=== PATIENT | male | born 1965 | race Caucasian/White ===

== ENCOUNTER 2020-08-13 09:53 | Emergency (ER) | payer OTHER, SELFPAY ==
--- NOTE | ~2020-08-13 | XR_ITS ---
EXAMINATION: XR chest 2V DATE: 08/13/2020 11:52 INDICATION: Left shoulder pain. TECHNIQUE: Frontal and lateral views of the chest were obtained on 3 radiographs. COMPARISON: None. FINDINGS: The chest demonstrates clear lungs without pneumonia, pleural effusion, or pneumothorax. Th e heart size is normal. IMPRESSION: 1. No acute cardiopulmonary disease. Reviewed, dictated and finalized at location A.
--- NOTE | ~2020-08-13 | XR_ITS ---
EXAMINATION: XR shoulder LT min 2V DATE: 08/13/2020 11:52 INDICATION: Left shoulder pain. TECHNIQUE: 5 views of left shoulder were obtained. COMPARISON: None. FINDINGS: Bone alignment is normal. No fracture. There is mild osteoarthritis of glenohumeral joint a nd moderate osteoarthritis of acromioclavicular joint. IMPRESSION: 1. Polyarticular osteoarthritis. Reviewed, dictated and finalized at location A.
--- NOTE | ~2020-08-13 | CT_ITS ---
EXAMINATION: CT abdomen pelvis wo con DATE: 08/13/2020 11:00 INDICATION: Left flank pain. TECHNIQUE: Computed tomography (CT) of the abdomen and pelvis was performed without intravenous contr ast. Automated exposure control and iterative reconstruction technique were employed. The dose-length product was 675.22 mGy-cm. COMPARISON: CT abdomen and pelvis 12/17/2016 FINDINGS: The visualized portions of the lung bases demonstrate mild atelectasis. No pleural effusion . Partially visualized is a 3.7 x 1.6 cm cyst to the right of right atrium and ascending aorta, consi stent with a pericardial cyst. The heart size is normal. No pericardial effusion. There is a 6 mm cys t in the liver. There is a gallstone in the gallbladder, which is normal in size. The spleen, pancrea s, adrenal glands, and right kidney are normal. There is a 4 mm nonobstructing stone in left kidney. There are no dilated loops of bowel. The appendix is not visualized. There are no pathologically enla rged lymph nodes. There is no free intraperitoneal fluid. There are small stones in the dependent yoko dder measuring up to at least 4 mm. There is a right inguinal hernia containing fat. There is mild th oracolumbar spondylosis. There is a hemangioma in T11 vertebral body. IMPRESSION: 1. Small stones in the bladder and left kidney. Reviewed, dictated and finalized at location A.
[2020-08-13 09:54] VITALS: BP 150/102; PULSE 80; RESP 18; TEMP 36.4; O2SAT 99
--- NOTE | 2020-08-13 10:29 | ED.BACK ---
HPI - Back Pain/Injury General Chief Complaint: Back Pain/Injury Stated Complaint: L flank pain Time Seen by Provider: 08/13/20 09:57 Source: patient Mode of arrival: ambulatory Limitations: no limitations History of Present Illness HPI Narrative: Patient is a 54-year-old male who presents complaining of left flank pain x3 to 4 days, increasing pain this a.m. Patient reports a history of kidney stones x5, last incidence approximately 1.5 years ago. He denies dysuria, frequency, urgency or visible hematuria. He denies nausea and vomiting, but reports initial nausea and vomiting which has resolved. He denies pain with movement, or any any known injury. Patient also complaining of left shoulder pain. He denies known injury, he denies chest pain or shortness of breath. Reports pain increases with range of motion. He denies taking [id number] medications for pain at this time. MD elicited complaint: other (Left flank pain) Pertinent past history: kidney stones Related Data Allergies Allergy/AdvReac Type Severity Reaction Status Date / Time No Known Allergies Allergy Verified 08/13/20 09:54 Review of Systems Review of Systems: Narrative: CONSTITUTIONAL: Denies fever, chills, or sweats. EYES: Denies visual changes, redness, or discharge. ENT: Denies rhinorrhea, congestion, sore throat, or otalgia. CARDIOVASCULAR: Denies chest pain, palpitations, or edema. RESPIRATORY: Denies cough or dyspnea. GASTROINTESTINAL: Denies abdominal pain, nausea, vomiting, or diarrhea. GENITOURINARY: Denies dysuria or hematuria. Reports left flank pain SKIN: Denies rash or itching. MUSCULOSKELETAL: Denies back pain, reports left shoulder pain NEUROLOGIC: Denies headache, numbness, dizziness, or weakness. PSYCHIATRIC: Denies anxiety or depression. [facility] Past Medical History Medical History (Updated 08/13/20 @ 13:59 by GRECIA Payne) Multiple kidney stones Surgical History Surgical History (Updated 08/13/20 @ 10:34 by GRECIA Payne) No significant past surgical history Family History Family History (Updated 08/13/20 @ 10:35 by GRECIA Payne) Other Hypertension Social History Social History (Updated 08/13/20 @ 10:35 by Klaudia M. Keen, AQUATIC ECOLOGIST) Smoking status: Current some day smoker Tobacco type: cigarettes Alcohol intake: current Alcohol use details: occasionally Substance use: never Living arrangements: with family Occupation/Education: occupation Gender identity (if verbalized by the patient): Male Exam Narrative: Exam Narrative: GENERAL: Well-appearing, well-nourished, and in no acute distress. HEAD: Normocephalic, atraumatic. EYES: EOMI. No redness or drainage. Conjunctiva are normal. ENT: Mucous membranes pink and moist. NECK: AROM. Supple. No lymphadenopathy. CHEST: No respiratory distress. Clear to auscultation. HEART: Regular rate and rhythm. No murmur appreciated. Normal peripheral pulses. GI: Soft, nontender without rebound, or guarding. No distention. Bowel sounds normal in all quadrants. MUSCULOSKELETAL: No bony tenderness. EXTREMITIES: Normal range of motion. No edema. SKIN: Warm, dry, no rash. NEURO: No focal deficits. Alert and oriented x3. Gait steady. PSYCH: Normal affect. No signs of depression or anxiety. Course Vital Signs Vital signs: Vital Signs Temperature 36.4 C L 08/13/20 09:54 Pulse Rate 80 08/13/20 09:54 Respiratory Rate 18 08/13/20 09:54 Blood Pressure 150/102 H 08/13/20 09:54 Pulse Oximetry 99 08/13/20 09:54 Temperature 36.4 C L 08/13/20 09:54 Pulse Rate 78 08/13/20 12:31 Respiratory Rate 18 08/13/20 12:31 Blood Pressure 160/90 H 08/13/20 12:31 Pulse Oximetry 99 08/13/20 12:31 Reviewed. Patient has been instructed to follow-up with his PCP regarding his blood pressure. MDM - Back Pain/Injury MDM Narrative Medical decision making narrative: Patients CT shows multiple kidney stones in bladder
[2020-08-13 10:32] LABS: Basophils Absolute Auto 0.1 K/mm3 (0.0-0.1); Basophils Percent Auto 0.6 % (0.2-1.2); Eosinophils Absolute Auto 0.3 K/mm3 (0-0.3); Eosinophils Percent Auto 3.7 % (0-4.4); Hematocrit 45.9 % (42.0-52.0); Hemoglobin 16.3 g/dL (14.0-18.0); Immature Granulocyte Absolute 0.02 K/mm3 (0.00-0.031); Immature Granulocyte Percent A 0.2 % (0-0.5); Lymphocytes Absolute Auto 2.34 K/mm3 (0.9-3.2); Lymphocytes Percent Auto 27.7 % (18.3-44.2); Mean Corpuscular HGB Conc 35.5 g/dl (32-36); Mean Corpuscular Hemoglobin 31.8 pg (26-34); Mean Corpuscular Volume 89.5 fl (80-100); Mean Platelet Volume 9.8 fl (7.4-10.4); Monocytes Absolute Auto 0.6 K/mm3 (0.1-0.6); Neutrophils Absolute Auto 5.1 K/mm3 (1.3-6.7); Neutrophils Percent Auto 60.8 % (45.5-73.1); Platelet Count Result 252 k/mm3 (150-375); Red Blood Count 5.13 M/mm3 (4.6-6.20); Red Cell Distribution Width 11.9 % (11.5-14.5); White Blood Count 8.4 K/mm3 (4.5-10.0)
--- NOTE | 2020-08-13 10:36 | ECG_ITS ---
Measurements Intervals [place] Rate: 71 P: 34 MO: 151 QRS: -25 QRSD: 102 T: 22 QT: 412 QTc: 449 Interpretive Statements SINUS RHYTHM BASELINE ARTIFACT- III, AVF, V1 BORDERLINE ECG Electronically Signed On 08-13-2020 11:06:41 CDT by Juan M Whitfield D.O.
[2020-08-13] MEDS: KETOROLAC 30 MG/ML VIAL (*BKC) IV PUSH (10:41)
[2020-08-13] MEDS: SODIUM CHLORIDE 0.9% IV 1,000 ML 999 ML IV CONT ×2 (10:41→12:33)
[2020-08-13 10:43] LABS: Anion Gap 12 mmol/L (8-16); Blood Urea Nitrogen 14 mg/dL (9-20); Calcium 9.4 mg/dL (8.4-10.2); Carbon Dioxide 21 mmol/L (22-30); Chloride 104 mmol/L (98-107); Estimated CRCL calculation 109 ml/min; Estimated Glomerular Filt Rate > 60; Glucose 93 mg/dL (75-110); Potassium 3.8 mmol/L (3.4-5.0); Sodium 137 mmol/L (137-145)
[2020-08-13 10:45] VITALS: BP 172/127; PULSE 69; RESP 15; O2SAT 98
[2020-08-13 10:51] LABS: Add Urine Microscopic? NO; Appearance Urine Clear (Clear); Bilirubin Urine Negative (Negative); Blood Urine Negative (Negative); Color Urine Yellow (Yellow); Glucose Urine UA Negative (Negative); Ketones Urine Negative (Negative); Leukocyte Esterase Ur Negative LEU/UL (Negative); Mucus Urine Few /lpf; Nitrate Urine Negative (Negative); Protein Urine Negative (Negative); Specific Grav Ur 1.021 (1.001-1.035); Squamous Epithelial Cell Urine Rare /hpf (Few); Urobilinogen Urine Negative mg/dL (<2.0)
[2020-08-13 11:16] LABS: Troponin I < 0.012 ng/mL (0.000-0.034)
[2020-08-13 11:23] VITALS: BP 178/123; PULSE 78; RESP 20; O2SAT 99
[2020-08-13] MEDS: MORPHINE SULFATE (*CRX) 4 MG/ML INJ IV PUSH (11:23)
[2020-08-13] MEDS: ONDANSETRON INJ 4 MG/2 ML VIAL IV PUSH (11:23)
[2020-08-13 12:31] VITALS: BP 160/90; PULSE 78; RESP 18; O2SAT 99
[2020-08-13 14:09] LABS: Troponin I < 0.012 ng/mL (0.000-0.034)
[2020-08-13 14:30] VITALS: BP 167/113; PULSE 63; RESP 15; O2SAT 98
== END 2020-08-13 14:36 | disposition home or self-care (01) ==
PROVIDERS: Emergency Provider Nurse Practitioner
DX: N20.0 Calculus of kidney (principal); M19.012 Primary osteoarthritis, left shoulder; Z87.442 Personal history of urinary calculi; F17.210 Nicotine dependence, cigarettes, uncomplicated; R94.31 Abnormal electrocardiogram [ECG] [EKG]
CPT/HCPCS: 36415; 71046; 73030; 74176; 80048; 81003; 84484; 85025; 93005; 96361; 96365; 96375; 99284; J0131; J1885; J2270; J2405; J7030

== ENCOUNTER 2022-08-04 09:10 | Emergency (ER) | payer OTHER, SELFPAY ==
--- NOTE | ~2022-08-04 | CT_ITS ---
EXAMINATION: CT abdomen pelvis wo con DATE: 08/04/2022 09:48 INDICATION: Right flank pain for one week. History of kidney stones. TECHNIQUE: Computed tomography (CT) of the abdomen and pelvis was performed without intravenous contr ast. The dose-length product was 1131.85 mGy-cm. Automated exposure control and iterative reconstruct ion technique were employed. COMPARISON: CT dated 08/13/2020 FINDINGS: Lung bases are unremarkable. No significant pleural or pericardial effusion. Heart size is normal. No significant vascular abnormality. There is a circumaortic left renal vein. There are galls tones. Small subcentimeter hypodensity of the right hepatic lobe, most likely benign. The spleen, mckinney creas, adrenal glands are unremarkable. There are small nonobstructing bilateral renal stones measuri ng 2 mm or less. No ureteral stones or hydronephrosis. There are is a bladder stone. No lymphadenopat hy. Nonobstructive bowel gas pattern. Prostate gland is mildly prominent. Mild osteoarthritis of the hips. There is an hemangioma in T11 vertebral body. Mild spondylosis of the thoracolumbar junction. IMPRESSION: 1. Small nonobstructing bilateral renal stones. 2: Bladder stone. 3: Cholelithiasis. Reviewed, dictated and finalized at location A.
[2022-08-04 09:14] VITALS: BP 155/91; PULSE 97; RESP 18; TEMP 36.5; O2SAT 99
[2022-08-04] MEDS: SODIUM CHLORIDE 0.9% IV 1,000 ML 999 ML IV CONT (09:35)
--- NOTE | 2022-08-04 09:35 | ED.GENADULT ---
HPI - General Adult General Chief complaint: Back Pain/Injury Stated complaint: right flank pain Time Seen by Provider: 08/04/22 09:18 History of Present Illness HPI narrative: 56-year-old male history of kidney stones presents the emergency room with gradual onset of right flank pain that has been present for 1 week. Patient denies any radiating pain. Denies fevers. Denies any urinary retention or decreased urinary flow. Reports regular bowel movements. States the pain is worse when he is standing up, and occasionally has difficulty finding a comfortable position Related Data Allergies Allergy/AdvReac Type Severity Reaction Status Date / Time No Known Allergies Allergy Verified 08/04/22 09:18 Review of Systems Review of Systems: CONSTITUTIONAL: Denies fever, chills, or sweats. EYES: Denies visual changes, redness, or discharge. ENT: Denies rhinorrhea, congestion, sore throat, or otalgia. CARDIOVASCULAR: Denies chest pain, palpitations, or edema. RESPIRATORY: Denies cough or dyspnea. GASTROINTESTINAL: Reports right flank pain, nausea GENITOURINARY: Denies dysuria or hematuria. SKIN: Denies rash or itching. MUSCULOSKELETAL: Denies back pain, joint pain, or myalgia. NEUROLOGIC: Denies headache, numbness, dizziness, or weakness. PSYCHIATRIC: Denies anxiety or depression. PMFSH Past Medical History Medical History Arthritis Hypertension Multiple kidney stones Seasonal allergies Tendinitis of left rotator cuff Trigger point of left shoulder region Surgical History Surgical History No significant past surgical history Family History Family History Other Arthritis Diabetes mellitus Heart disease Hypertension Malignant neoplasm Social History Social History Smoking packs per day: 0.5 Smoking cigarettes per day: 10.0 Years smoked: 20 Smoking pack-years: 10.00 Smoking status: Current some day smoker Tobacco type: cigarettes Alcohol intake: current Alcohol use details: occasionally Substance use: never Gender identity (if verbalized by the patient): Male Exam Narrative: GENERAL: Uncomfortable-appearing, well-nourished, no physical limitations HEAD: Normocephalic, atraumatic. EYES: Conjunctivae normal, PERRLA and EOMI. CHEST: Clear to auscultation. No respiratory distress. No wheezes rales or rhonchi. HEART: Regular rate and rhythm. No murmur heard. Normal peripheral pulses. ABDOMEN: Soft, nontender, nondistended, normal active bowel sounds. BACK: Right CVA tenderness; No midline cervical/thoracic/lumbar tenderness EXTREMITIES: Normal range of motion. No edema. No clubbing or cyanosis SKIN: Warm, dry, no rash. No noted wounds NEURO: No focal deficits. Alert and oriented x3. MAEW. CN's II-XI intact bilaterally, normal gait PSYCH: Cooperative. Normal mood and affect. Course Vital Signs Vital signs: Vital Signs Temperature 36.5 C 08/04/22 09:14 Pulse Rate 97 08/04/22 09:14 Respiratory Rate 18 08/04/22 09:14 Blood Pressure 155/91 H 08/04/22 09:14 Pulse Oximetry 99 08/04/22 09:14 Oxygen Delivery Room Air 08/04/22 09:14 Temperature 36.5 C 08/04/22 09:14 Pulse Rate 97 08/04/22 09:14 Respiratory Rate 18 08/04/22 09:14 Blood Pressure 155/91 H 08/04/22 09:14 Pulse Oximetry 99 08/04/22 09:14 Oxygen Delivery Room Air 08/04/22 09:14 Medical Decision Making Vital Signs Vital Signs: Vital Signs Temperature 36.5 C 08/04/22 09:14 Pulse Rate 97 08/04/22 09:14 Respiratory Rate 18 08/04/22 09:14 Blood Pressure 155/91 H 08/04/22 09:14 Pulse Oximetry 99 08/04/22 09:14 Oxygen Delivery Room Air 08/04/22 09:14 Temperature 36.5 C 08/04/22 09:14 Pulse Rate 97 08/04/22 09:14 Respiratory Rate 18
[2022-08-04] MEDS: ONDANSETRON INJ 4 MG/2 ML VIAL IV PUSH (09:36)
[2022-08-04] MEDS: MORPHINE SULFATE (*CRX) 4 MG/ML INJ IV PUSH (09:36)
[2022-08-04 09:37] LABS: Basophils Percent Auto 0.6 % (0.2-1.2); Eosinophils Absolute Auto 0.3 K/mm3 (0-0.3); Eosinophils Percent Auto 6.3 % (0-4.4); Hematocrit 46.9 % (42.0-52.0); Hemoglobin 16.4 g/dL (14.0-18.0); Immature Granulocyte Absolute 0.01 K/mm3 (0.00-0.031); Immature Granulocyte Percent A 0.2 % (0-0.5); Lymphocytes Absolute Auto 1.57 K/mm3 (0.9-3.2); Lymphocytes Percent Auto 30.9 % (18.3-44.2); Mean Corpuscular Volume 91.6 fl (80-100); Mean Platelet Volume 9.3 fl (7.4-10.4); Monocytes Absolute Auto 0.4 K/mm3 (0.1-0.6); Monocytes Percent Auto 7.1 % (2.6-8.5); Neutrophils Absolute Auto 2.8 K/mm3 (1.3-6.7); Neutrophils Percent Auto 54.9 % (45.5-73.1); Platelet Count Result 224 k/mm3 (150-375); Red Blood Count 5.12 M/mm3 (4.6-6.20); Red Cell Distribution Width 12.3 % (11.5-14.5); White Blood Count 5.1 K/mm3 (4.5-10.0)
[2022-08-04 09:54] LABS: Alanine Aminotransferase 43 U/L (6-50); Albumin Level 4.5 g/dL (3.5-5.1); Alkaline Phosphatase 88 U/L (38-126); Anion Gap 10 mmol/L (8-16); Aspartate Amino Transferase 32 U/L (17-59); Bilirubin,Total 0.7 mg/dL (0.2-1.3); Blood Urea Nitrogen 12 mg/dL (9-20); Carbon Dioxide 23 mmol/L (22-30); Chloride 108 mmol/L (98-107); Estimated CRCL calculation 96 ml/min; Estimated Glomerular Filt Rate > 60; Glucose 124 mg/dL (65-110); Lipase 78 U/L (23-300); Potassium 3.9 mmol/L (3.4-5.0); Sodium 141 mmol/L (137-145)
[2022-08-04 10:33] LABS: Appearance Urine Clear (Clear); Bilirubin Urine Negative (Negative); Blood Urine Negative (Negative); Color Urine Yellow (Yellow); Glucose Urine UA Negative (Negative); Ketones Urine Negative (Negative); Leukocyte Esterase Ur Negative LEU/UL (Negative); Nitrate Urine Negative (Negative); Protein Urine Negative (Negative); Specific Grav Ur 1.025 (1.001-1.035); Urobilinogen Urine 0.2 mg/dL (<2.0); pH Urine 6.5 (5.0-9.0)
[2022-08-04 10:42] LABS: Add Urine Microscopic? NO
[2022-08-04 11:09] VITALS: BP 145/92; PULSE 73; RESP 18; O2SAT 97
== END 2022-08-04 11:11 | disposition home or self-care (01) ==
PROVIDERS: Emergency Provider Nurse Practitioner Family; PCP Family Medicine
DX: S29.012A Strain of muscle and tendon of back wall of thorax, initial encounter (principal); I10 Essential (primary) hypertension; M19.90 Unspecified osteoarthritis, unspecified site; F17.210 Nicotine dependence, cigarettes, uncomplicated; Z87.442 Personal history of urinary calculi; N21.0 Calculus in bladder; K80.20 Calculus of gallbladder without cholecystitis without obstruction; X58.XXXA Exposure to other specified factors, initial encounter
CPT/HCPCS: 36415; 74176; 80053; 81003; 83690; 85025; 96361; 96374; 96375; 99284; J2270; J2405; J7030

== ENCOUNTER 2022-08-18 04:29 | Emergency (ER) | payer OTHER, SELFPAY ==
[2022-08-18 04:36] VITALS: BP 140/92; PULSE 81; RESP 18; TEMP 36.4; O2SAT 100
[2022-08-18 05:00] LABS: Basophils Percent Auto 0.8 % (0.2-1.2); Eosinophils Absolute Auto 0.3 K/mm3 (0-0.3); Eosinophils Percent Auto 5.4 % (0-4.4); Hematocrit 47.2 % (42.0-52.0); Hemoglobin 16.4 g/dL (14.0-18.0); Immature Granulocyte Absolute 0.02 K/mm3 (0.00-0.031); Immature Granulocyte Percent A 0.4 % (0-0.5); Lymphocytes Percent Auto 24.9 % (18.3-44.2); Mean Corpuscular HGB Conc 34.7 g/dl (32-36); Mean Corpuscular Hemoglobin 32.1 pg (26-34); Mean Corpuscular Volume 92.4 fl (80-100); Mean Platelet Volume 9.6 fl (7.4-10.4); Monocytes Absolute Auto 0.4 K/mm3 (0.1-0.6); Monocytes Percent Auto 7.3 % (2.6-8.5); Neutrophils Absolute Auto 3.2 K/mm3 (1.3-6.7); Neutrophils Percent Auto 61.2 % (45.5-73.1); Platelet Count Result 223 k/mm3 (150-375); Red Blood Count 5.11 M/mm3 (4.6-6.20); Red Cell Distribution Width 11.9 % (11.5-14.5); White Blood Count 5.2 K/mm3 (4.5-10.0)
[2022-08-18 05:16] LABS: Alanine Aminotransferase 36 U/L (6-50); Albumin Level 4.5 g/dL (3.5-5.1); Alkaline Phosphatase 90 U/L (38-126); Anion Gap 8 mmol/L (8-16); Aspartate Amino Transferase 30 U/L (17-59); Bilirubin,Total 0.6 mg/dL (0.2-1.3); Blood Urea Nitrogen 11 mg/dL (9-20); Carbon Dioxide 25 mmol/L (22-30); Chloride 106 mmol/L (98-107); Estimated CRCL calculation 104 ml/min; Estimated Glomerular Filt Rate > 60; Glucose 118 mg/dL (65-110); Potassium 4.2 mmol/L (3.4-5.0); Sodium 139 mmol/L (137-145)
[2022-08-18] MEDS: predniSONE 40 MG, predniSONE 10 MG 50 MG PO (06:21)
[2022-08-18] MEDS: IBUPROFEN 400 MG TABLET 800 MG PO (06:22)
[2022-08-18] MEDS: HYDROcodone/acetaminophen (*CRX) 5-325 MG TABLET 1 TAB PO (06:22)
--- NOTE | 2022-08-18 06:32 | ED.GENADULT ---
HPI - General Adult General Chief complaint: Urogenital-Male Stated complaint: lower back pain, kidney stones x2 wks Time Seen by Provider: 08/18/22 05:44 History of Present Illness HPI narrative: Patient is a 56-year-old male presenting with lower back pain. Patient states that he has been having lower back pain for the last several weeks. States that for the last couple of days it has been shooting down his right leg. States that certain movements and positions make it worse. Denies recent trauma. No fevers or chills. Denies numbness, weakness, saddle anesthesia, bladder or bowel incontinence. Patient states that he has an appointment with urology later today for kidney stones. States this feels differently than his kidney stone pain because the pain goes down his leg. He denies chest pain, shortness of breath, cough, abdominal pain, nausea or vomiting, diarrhea, dysuria. Related Data Allergies Allergy/AdvReac Type Severity Reaction Status Date / Time No Known Allergies Allergy Verified 08/18/22 04:32 Review of Systems Review of Systems: All systems reviewed & are unremarkable except as noted in HPI and below PMFSH Past Medical History Medical History Arthritis Hypertension Multiple kidney stones Seasonal allergies Tendinitis of left rotator cuff Trigger point of left shoulder region Surgical History Surgical History No significant past surgical history Family History Family History Other Arthritis Diabetes mellitus Heart disease Hypertension Malignant neoplasm Social History Social History Smoking packs per day: 0.5 Smoking cigarettes per day: 10.0 Years smoked: 20 Smoking pack-years: 10.00 Smoking status: Current some day smoker Tobacco type: cigarettes Alcohol intake: current Alcohol use details: occasionally Substance use: never Gender identity (if verbalized by the patient): Male Exam Narrative: GENERAL: Well-appearing, well-nourished, and in no acute distress. HEAD: Normocephalic, atraumatic. EYES: PERRLA and EOMI. ENT: Nares clear, no rhinorrhea or epistaxis. Mucous membranes moist. NECK: Supple. CHEST: Clear to auscultation. No respiratory distress. HEART: Regular rate and rhythm. No murmur heard. Normal peripheral pulses. ABDOMEN: Soft, nontender, nondistended, normal active bowel sounds. EXTREMITIES: Normal range of motion. No edema. + straight leg raise SKIN: Warm, dry, no rash. NEURO: No focal deficits. Alert and oriented x3. PSYCH: Normal mood and affect. Course Course Emergency Course: Patient is a 56-year-old male presenting with lower back pain that radiates down his right leg. Vitals within normal limits. Exam remarkable for the above. Patient is neurologically intact. No red flag symptoms. Urine and blood work is unremarkable. Patient given a dose of steroids, Toradol. Will prescribe Medrol Dosepak. Appropriate return precautions given. Advised that he follow-up with primary care. Patient voiced understanding and is agreeable with plan. Discharged in stable condition ambulating steadily. Vital Signs Vital signs: Vital Signs Temperature 97.6 F 08/18/22 04:36 Pulse Rate 81 08/18/22 04:36 Respiratory Rate 18 08/18/22 04:36 Blood Pressure 140/92 H 08/18/22 04:36 Pulse Oximetry 100 08/18/22 04:36 Oxygen Delivery Room Air 08/18/22 04:36 Temperature 97.6 F 08/18/22 04:36 Pulse Rate 70 08/18/22 07:25 Respiratory Rate 16 08/18/22 07:25 Blood Pressure 138/98 H 08/18/22 07:25 Pulse Oximetry 97 08/18/22 07:25 Oxygen Delivery Room Air 08/18/22 04:36 Medical Decision Making Vital Signs Vital Signs: Vital Signs Temperature 97.6 F 08/18/22 04:36 Pulse Rate 81
[2022-08-18 06:44] LABS: Add Urine Microscopic? NO; Appearance Urine Clear (Clear); Bilirubin Urine Negative (Negative); Blood Urine Negative (Negative); Color Urine Yellow (Yellow); Glucose Urine UA Negative (Negative); Ketones Urine Negative (Negative); Leukocyte Esterase Ur Negative LEU/UL (Negative); Nitrate Urine Negative (Negative); Protein Urine Negative (Negative); Specific Grav Ur 1.015 (1.001-1.035); Urobilinogen Urine Negative mg/dL (<2.0)
[2022-08-18 07:25] VITALS: BP 138/98; PULSE 70; RESP 16; O2SAT 97
== END 2022-08-18 07:25 | disposition home or self-care (01) ==
PROVIDERS: Emergency Provider Emergency Medicine; PCP Registered Nurse
DX: M54.16 Radiculopathy, lumbar region (principal); I10 Essential (primary) hypertension; M19.90 Unspecified osteoarthritis, unspecified site; Z87.442 Personal history of urinary calculi; F17.210 Nicotine dependence, cigarettes, uncomplicated
CPT/HCPCS: 36415; 80053; 81003; 85025; 99283; A9270; J7512

== ENCOUNTER 2022-08-25 14:52 | Outpatient (CLI) | payer OTHER, SELFPAY ==
--- NOTE | ~2022-08-25 | XR_ITS ---
XR abdomen/kub 1V 08/25/2022 15:09 INDICATION: Bladder stone. TECHNIQUE: KUB COMPARISON: CT dated 08/04/2022 FINDINGS: Bowel gas pattern is normal. Moderate colonic fecal loading. There is no evidence of free a ir, mass, organomegaly, ascites or obstruction. The bones appear intact. There is a possible punctate bladder stone in the right pelvis. There are pelvic phleboliths on the left. No acute osseous abnorm ality. IMPRESSION: 1: Possible punctate bladder stone in the right pelvis. Reviewed, dictated and finalized at location B.
== END 2022-08-25 14:53 | disposition home or self-care (01) ==
PROVIDERS: PCP Registered Nurse; Visit Provider Nurse Practitioner Adult Health
DX: N21.0 Calculus in bladder (principal)
CPT/HCPCS: 74018

== ENCOUNTER 2022-10-04 07:22 | Outpatient (CLI) | payer OTHER, SELFPAY ==
[2022-10-04 07:53] LABS: Basophils Percent Auto 0.7 % (0.2-1.2); Eosinophils Absolute Auto 0.3 K/mm3 (0-0.3); Hematocrit 44.3 % (42.0-52.0); Hemoglobin 15.7 g/dL (14.0-18.0); Immature Granulocyte Absolute 0.01 K/mm3 (0.00-0.031); Immature Granulocyte Percent A 0.2 % (0-0.5); Lymphocytes Absolute Auto 1.56 K/mm3 (0.9-3.2); Lymphocytes Percent Auto 29.1 % (18.3-44.2); Mean Corpuscular HGB Conc 35.4 g/dl (32-36); Mean Corpuscular Hemoglobin 31.8 pg (26-34); Mean Corpuscular Volume 89.7 fl (80-100); Mean Platelet Volume 9.6 fl (7.4-10.4); Monocytes Absolute Auto 0.5 K/mm3 (0.1-0.6); Monocytes Percent Auto 8.9 % (2.6-8.5); Neutrophils Percent Auto 55.1 % (45.5-73.1); Platelet Count Result 207 k/mm3 (150-375); Red Blood Count 4.94 M/mm3 (4.6-6.20); Red Cell Distribution Width 11.8 % (11.5-14.5); White Blood Count 5.4 K/mm3 (4.5-10.0)
[2022-10-04 08:02] LABS: Alanine Aminotransferase 39 U/L (6-50); Albumin Level 4.5 g/dL (3.5-5.1); Alkaline Phosphatase 101 U/L (38-126); Anion Gap 7 mmol/L (8-16); Aspartate Amino Transferase 29 U/L (17-59); Bilirubin,Total 0.6 mg/dL (0.2-1.3); Blood Urea Nitrogen 11 mg/dL (9-20); Calcium 8.7 mg/dL (8.4-10.2); Carbon Dioxide 25 mmol/L (22-30); Chloride 108 mmol/L (98-107); Cholesterol 147 mg/dL (0-200); Estimated Glomerular Filt Rate > 60; Glucose 105 mg/dL (65-110); HDL Direct 38 mg/dL; Potassium 3.9 mmol/L (3.4-5.0); Sodium 140 mmol/L (137-145); Triglycerides 74 mg/dL (<150); Uric Acid 6.1 mg/dL (3.5-8.5)
[2022-10-04 08:13] LABS: LDL Cholesterol Direct 88 mg/dL
[2022-10-04 08:33] LABS: Prostate Specific Antigen 0.5 ng/mL (< OR = 4.0)
[2022-10-04 09:24] LABS: Thyroid Stimulating Hormone Reflex 0.652 uIU/mL (0.465-4.68)
== END 2022-10-04 07:23 | disposition home or self-care (01) ==
LOC: ANHLAB 07:24
PROVIDERS: PCP Registered Nurse; Visit Provider Registered Nurse
DX: Z00.00 Encounter for general adult medical examination without abnormal findings (principal); N20.0 Calculus of kidney; Z68.31 Body mass index [BMI] 31.0-31.9, adult; R03.0 Elevated blood-pressure reading, without diagnosis of hypertension
CPT/HCPCS: 36415; 80053; 80061; 84153; 84443; 84550; 85025; G0103

== ENCOUNTER 2023-05-11 06:58 | Day surgery (SDC) | payer OTHER, SELFPAY ==
[2023-04-28 09:45] VITALS: BMI 31.4
--- NOTE | 2023-05-08 12:52 | P.PNAN_ITS ---
Anes - Initial Pre Proc Eval Procedure: Operation Date: 05/11/23 09:00 Proposed Procedures p Screening Colonoscopy - Giovani Pearson MD Date/Time: 05/08/23 12:52 Surgeon: Giovani Pearson MD Pre Op Diagnosis: Neoplasm Screening Patient Data Age: 57 Gender: M Height: 1.85 m Weight: 108 kg Allergies Allergy/AdvReac Type Severity Reaction Status Date / Time No Known Allergies Allergy Verified 05/11/23 07:39 Home Medications Medication Instructions Recorded Confirmed Type multivitamin with minerals-folic 0.4 tablet PO DAILY 04/28/23 05/11/23 History acid 0.4 mg tablet Patient hx anesthesia problems: none Family hx anesthesia problems: none Results Review: All pre-operative results and documents have been reviewed as part of the pre-operative evaluation. [facility] Past Medical History Medical History (Updated 05/11/23 @ 08:58 by Giovani Pearson MD) Arthritis Colon cancer screening Hypertension Multiple kidney stones Seasonal allergies Tendinitis of left rotator cuff Trigger point of left shoulder region Surgical History Surgical History No significant past surgical history Family History Family History Other Arthritis Diabetes mellitus Heart disease Hypertension Malignant neoplasm Social History Social History Smoking packs per day: 0.5 Smoking cigarettes per day: 10.0 Years smoked: 30 Smoking pack-years: 15.00 Smoking status: Current every day smoker Tobacco type: cigarettes Alcohol intake: current Alcohol use details: occasionally Substance use: never Substance use type: does not use Living arrangements: with family Occupation/Education: occupation Gender identity (if verbalized by the patient): Male Spiritual care concerns: No Anes - Eval Final PreProcedure Day of Procedure 05/08/23 12:52 Patient weight: obese Heart: regular rate and rhythm Lungs: clear to auscultation Airway: Mallampati scale class II Neurological: alert and oriented Last oral intake: >/= 8 hours ASA classification: III Emergent: no Anesthetic plan: proceed Anesthesia type and monitoring: general GIVS and standard monitoring Results Review: All pre-operative results and documents have been reviewed as part of the pre- operative evaluation. Informed Consent: The patient's anesthetic plan and its attendant risks and benefits were discussed with the patient/family/POA. Questions were solicited and answers provided to the satisfaction of the patient/family/POA.
[2023-05-11 07:37] VITALS: BP 141/92; PULSE 75; RESP 16; TEMP 36.6; O2SAT 97
[2023-05-11] MEDS: LACTATED RINGERS 1,000 ML 150 ML IV CONT (07:45)
--- NOTE | 2023-05-11 08:56 | PM.HPGS ---
History of Present Illness History of Present Illness Consent: Risks, benefits, and alternatives have been discussed and questions answered. Patient agrees to proceed with procedure. Chief complaint: Neoplasm Screening Narrative: Roland Gutierrez is a 57 year old male here for first screening colonoscopy Review of Systems Constitutional: Constitutional: Denies headache(s) and Denies weakness Eyes: Eyes: Denies blurry vision ENT: Reports Normal hearing present, Denies headache(s) and Denies neck pain Cardiovascular: Cardiovascular: Denies chest pain and Denies dyspnea Respiratory: Respiratory: Denies dyspnea Gastrointestinal: Gastrointestinal: Reports no additional gastrointestinal complaints Genitourinary: Genitourinary: Denies dysuria Musculoskeletal: Musculoskeletal: Denies neck pain Integumentary/Breasts: Skin/Breast: Denies dry skin Neurologic: Reports Normal hearing present, Denies headache(s) and Denies weakness Psychiatric: Psychiatric: Denies anxiety Endocrine: Endocrine: Denies change in body appearance Hematologic/Lymphatic: Hematologic/Lymphatic: Denies easy bleeding Allergic/Immunologic: Allergic/Immunologic: Denies urticaria PMF Past Medical History Medical History (Updated 05/11/23 @ 08:58 by Giovani Pearson MD) Arthritis Colon cancer screening Hypertension Multiple kidney stones Seasonal allergies Tendinitis of left rotator cuff Trigger point of left shoulder region Surgical History Surgical History No significant past surgical history Family History Family History Other Arthritis Diabetes mellitus Heart disease Hypertension Malignant neoplasm Social History Social History Smoking packs per day: 0.5 Smoking cigarettes per day: 10.0 Years smoked: 30 Smoking pack-years: 15.00 Smoking status: Current every day smoker Tobacco type: cigarettes Alcohol intake: current Alcohol use details: occasionally Substance use: never Substance use type: does not use Living arrangements: with family Occupation/Education: occupation Gender identity (if verbalized by the patient): Male Spiritual care concerns: No Meds Home Medications and Allergies Home Medications Medication Instructions Recorded Confirmed Type multivitamin with minerals-folic 0.4 tablet PO DAILY 04/28/23 05/11/23 History acid 0.4 mg tablet Allergies Allergy/AdvReac Type Severity Reaction Status Date / Time No Known Allergies Allergy Verified 05/11/23 07:39 Vital Signs Vital Signs - 24 hr 05/11/23 07:37 Temperature 97.9 F Pulse Rate 75 Respiratory Rate 16 Blood Pressure 141/92 H Pulse Oximetry 97 Oxygen Delivery Room Air Exam Const: General: comfortable and no acute distress HENMT: Face/Nose/Sinus: Normal nares present Eyes: General: appearance normal, both eyes and all related structures Neck: Neck: no JVD Resp: Auscultation: clear to auscultation bilaterally Cardio: Rate: regular rate Rhythm: regular rhythm GI: Inspection: non-distended GI Palp: Yes Soft to palpation Skin: General skin exam: normal color Neuro: General: gait normal Speech: normal speech Extrem: General: normal to inspection Psych: Mental Status: mental status grossly normal Assessment and Plan Assessment and plan (1) Colon cancer screening: Code(s): Z12.11 - Encounter for screening for malignant neoplasm of colon Status: Acute Assessment and Plan: colonoscopy
[2023-05-11 09:19] VITALS: BP 136/96; PULSE 65; RESP 16; O2SAT 94
[2023-05-11 09:29] VITALS: BP 138/95; PULSE 65; RESP 16; O2SAT 95
[2023-05-11 09:39] VITALS: BP 149/101; PULSE 67; RESP 16; O2SAT 95
--- NOTE | 2023-05-11 11:12 | WPDANESPN ---
Anes - Prog Note Post-Op Date/Time: 05/11/23 11:12 Cardiovascular status: normal Respiratory status: normal Airway patency: baseline Mental status: baseline Post-Op hydration status: normal Vital Signs: Last Vital Signs Temp 36.6 C 05/11/23 07:37 Pulse 67 05/11/23 09:39 Resp 16 05/11/23 09:39 BP 149/101 H 05/11/23 09:39 Pulse Ox 95 05/11/23 09:39 O2 Del Method Room Air 05/11/23 09:39 Pain Score (VAS): 0 I/O: Intake & Output 05/10/23 05/11/23 05/11/23 23:59 07:59 15:59 Intake Total 800 Balance 800 Post-procedural complaints: none Patient Feedback: Patient satisfied with anesthetic care. Other Findings: Patient vital signs back to baseline. Patient denies nausea and vomiting. Patient's pain under control. Patient OK for discharge.
== END 2023-05-11 09:48 | disposition home or self-care (01) ==
PROVIDERS: PCP Registered Nurse; Visit Provider Internal Medicine Gastroenterology
PROC: 0DJD8ZZ Inspection of Lower Intestinal Tract, Via Natural or Artificial Opening Endoscopic (ICD-10-PCS; CPT 45378; principal; 2023-05-11 09:00)
DX: Z12.11 Encounter for screening for malignant neoplasm of colon (principal)
CPT/HCPCS: 45385

== ENCOUNTER 2023-05-11 09:00 | Outpatient (NON) | payer OTHER, SELFPAY | END 2023-05-11 09:01 | disposition home or self-care (01) | LOC: ANHLAB 05-12 08:05 | PROVIDERS: PCP Registered Nurse; Visit Provider Internal Medicine Gastroenterology | DX: Z12.11 Encounter for screening for malignant neoplasm of colon (principal); D12.5 Benign neoplasm of sigmoid colon; D12.3 Benign neoplasm of transverse colon | CPT/HCPCS: 88305 ==

== ENCOUNTER 2023-11-25 13:02 | Inpatient (IN) | payer OTHER, SELFPAY ==
[2023-11-25] VITALS (14 sets, daily range): BP systolic 108–152; BP diastolic 80–111; PULSE 78–111; RESP 16–23; TEMP 36.4–37.1; O2SAT 90–98; BMI 32.5
--- NOTE | ~2023-11-25 | XR_ITS ---
EXAMINATION: XR chest 1V portable DATE: 11/25/2023 15:20 INDICATION: Chest pain. Shortness of breath. TECHNIQUE: A single frontal view of the chest was obtained on 2 radiographs. COMPARISON: Chest 2 views 08/13/2020, CT abdomen and pelvis 08/04/2022 FINDINGS: There is a moderate-sized left pleural effusion. There are airspace opacities in right lowe r lung zone and left mid and lower lung zones. No pneumothorax. Cardiomegaly is noted. IMPRESSION: 1. Moderate-sized left pleural effusion. 2. Airspace opacities in right lower lung zone and left mid and lower lung zones, consistent with ate lectasis versus pneumonia. 3. Cardiomegaly. Reviewed, dictated and finalized at location E. VERY ASSISTANT IMPRESSION: 1. Moderate-sized left pleural effusion. 2. Airspace opacities in right lower lung zone and left mid and lower lung zone s, consistent with atelectasis versus pneumonia. 3. Cardiomegaly.
--- NOTE | 2023-11-25 13:02 | ECG_ITS ---
Measurements Intervals [place] Rate: 109 P: 42 [place]: 163 QRS: 6 QRSD: 163 T: 128 QT: 408 QTc: 551 Interpretive Statements SINUS TACHYCARDIA POSSIBLE LEFT ATRIAL ENLARGEMENT LEFT BUNDLE BRANCH BLOCK ABNORMAL ECG COMPARED TO ECG 08/13/2020 10:44:38 SINUS TACHYCARDIA NOW PRESENT LEFT BUNDLE-BRANCH BLOCK NOW PRESENT Electronically Signed On 11-25-2023 13:18:18 CLEARANCE REPRESENTATIVE by Juan M Whitfield D.O.
[2023-11-25] MEDS: ASPIRIN 81 MG CHEWABLE TABLET 324 MG PO (13:25)
--- NOTE | 2023-11-25 13:25 | ED.CHESTPAIN ---
HPI - Chest Pain General Chief Complaint: Chest Pain Stated Complaint: CP Time Seen by Provider: 11/25/23 13:25 History of Present Illness HPI narrative: 58-year-old male with no previous cardiac history presenting to the emergency department for evaluation of intermittent chest pain, but has been constant today. Patient states he woke up this morning with substernal chest pain that radiates to his back. Upon arrival to the emergency department patient had a new left bundle branch block with chest pain. Case discussed with cardiology and patient was taken to the cathode washer. Related Data Home Medications Medication Instructions Recorded Confirmed multivitamin with minerals-folic 0.4 tablet PO DAILY 04/28/23 11/25/23 acid 0.4 mg tablet Allergies Allergy/AdvReac Type Severity Reaction Status Date / Time No Known Allergies Allergy Verified 05/11/23 07:39 Review of Systems Review of Systems: All systems reviewed & are unremarkable except as noted in HPI and below PMFSH Past Medical History Medical History Arthritis Colon cancer screening Hypertension Multiple kidney stones Seasonal allergies Tendinitis of left rotator cuff Trigger point of left shoulder region Surgical History Surgical History No significant past surgical history Family History Family History Other Arthritis Diabetes mellitus Heart disease Hypertension Malignant neoplasm Social History Social History Smoking packs per day: 0.5 Smoking cigarettes per day: 10.0 Years smoked: 30 Smoking pack-years: 15.00 Smoking status: Light tobacco smoker Tobacco type: cigarettes Alcohol intake: current Drinks per week: 3 Alcohol use details: occasionally Substance use: never Substance use type: does not use Do You Feel Safe in your Home?: Yes Lack of Transportation: No Lack of Food: Never True Current Housing: I Have Housing Concerned About Future Housing: No Difficulty Paying Gas/Electric Bills: No Difficulty Paying for Meds: No Currently Unemployed: No Education: High School Diploma/GED Difficulty w/ Childcare or Family Care: No Living arrangements: with family Occupation/Education: occupation Gender identity (if verbalized by the patient): Male Spiritual care concerns: No Course Course Emergency Course: Patient was transferred from the emergency department to the cathode washer Vital Signs Vital signs: Vital Signs Temperature 97.6 F 11/25/23 13:15 Pulse Rate 107 H 11/25/23 13:15 Respiratory Rate 17 11/25/23 13:15 Blood Pressure 134/97 H 11/25/23 13:15 Pulse Oximetry 95 11/25/23 13:15 Temperature 98.2 F 11/25/23 18:00 Pulse Rate 108 H 11/25/23 18:00 Respiratory Rate 23 H 11/25/23 18:00 Blood Pressure 142/103 H 11/25/23 18:00 Pulse Oximetry 98 11/25/23 18:00 Oxygen Delivery Nasal Cannula 11/25/23 16:00 Oxygen Flow Rate 2 11/25/23 16:00 MDM - Chest Pain Lab Data 11/25/23 13:29 11/25/23 13:29 Labs: Lab Results 11/25/23 11/25/23 Range/Units 13:29 13:49 WBC 10.9 H (4.5-10.0) K/mm3 RBC 5.13 (4.6-6.20) M/mm3 Hgb 15.6 (14.0-18.0) g/dL Hct 48.1 (42.0-52.0) % MCV 93.8 (80-100) fl MCH 30.4 (26-34) pg MCHC 32.4 (32-36) g/dl RDW 12.2 (11.5-14.5) % Plt Count 296 (150-375) k/mm3 MPV 10.3 (7.4-10.4) fl Immature Gran % (Auto) 0.3 (0-0.5) % Neut % (Auto) 68.4 (45.5-73.1) % Lymph % (Auto) 22.3 (18.3-44.2) % [place] % (Auto) 7.3 (2.6-8.5) % Eos % (Auto) 1.2 (0-4.4) % Baso % (Auto) 0.5 (0.2-1.2) % Lymph # (Auto) 2.42 (0.9-3.2) K/mm3 [place] # (Auto) 0.8 H (0.1-0.6) K/mm3 Eos # (Auto) 0.1 (0-0.3) K/mm3 Baso # (Auto) 0.1 (0.0-0.1) K/mm3 Abs Im
[2023-11-25] MEDS: HEPARIN SODIUM 5,000 UNITS/ML VIAL 4000 UNITS IV PUSH (13:31)
--- NOTE | 2023-11-25 13:31 | PC.NURSE ---
1326 Dr Eden spoke with Dr Oneal 1327 Stemi O/H 1328 Alin sent 1330 ALS [facility]
[2023-11-25 13:42] LABS: Basophils Absolute Auto 0.1 K/mm3 (0.0-0.1); Basophils Percent Auto 0.5 % (0.2-1.2); Eosinophils Absolute Auto 0.1 K/mm3 (0-0.3); Eosinophils Percent Auto 1.2 % (0-4.4); Hematocrit 48.1 % (42.0-52.0); Hemoglobin 15.6 g/dL (14.0-18.0); Immature Granulocyte Absolute 0.03 K/mm3 (0.00-0.031); Immature Granulocyte Percent A 0.3 % (0-0.5); Lymphocytes Absolute Auto 2.42 K/mm3 (0.9-3.2); Lymphocytes Percent Auto 22.3 % (18.3-44.2); Mean Corpuscular HGB Conc 32.4 g/dl (32-36); Mean Corpuscular Hemoglobin 30.4 pg (26-34); Mean Corpuscular Volume 93.8 fl (80-100); Mean Platelet Volume 10.3 fl (7.4-10.4); Monocytes Absolute Auto 0.8 K/mm3 (0.1-0.6); Monocytes Percent Auto 7.3 % (2.6-8.5); Neutrophils Absolute Auto 7.4 K/mm3 (1.3-6.7); Neutrophils Percent Auto 68.4 % (45.5-73.1); Platelet Count Result 296 k/mm3 (150-375); Red Blood Count 5.13 M/mm3 (4.6-6.20); Red Cell Distribution Width 12.2 % (11.5-14.5); White Blood Count 10.9 K/mm3 (4.5-10.0)
[2023-11-25 13:48] LABS: Alanine Aminotransferase 38 U/L (6-50); Albumin Level 4.3 g/dL (3.5-5.1); Alkaline Phosphatase 124 U/L (38-126); Anion Gap 8 mmol/L (8-16); Aspartate Amino Transferase 51 U/L (17-59); Bilirubin,Total 0.9 mg/dL (0.2-1.3); Blood Urea Nitrogen 16 mg/dL (9-20); Carbon Dioxide 24 mmol/L (22-30); Chloride 108 mmol/L (98-107); Estimated CRCL calculation 104 ml/min; Estimated Glomerular Filt Rate > 60; Glucose 103 mg/dL (65-110); Lipase 66 U/L (23-300); Sodium 140 mmol/L (137-145)
[2023-11-25 13:55] LABS: INR 1.2; Prothrombin Time 15.8 Seconds (11.1-14.7)
[2023-11-25 13:56] LABS: Partial Thromboplastin Time 27.9 SECONDS (22.3-36.8)
[2023-11-25 14:19] LABS: D Dimer 2.17 ug/mL (<0.48)
--- NOTE | 2023-11-25 14:21 | SUR.OPER ---
Dr. Oneal notified of Critical Troponin at 1415 by Sol Brothers RN
--- NOTE | 2023-11-25 14:24 | PM.IMHP ---
H&P: HPI History of Present Illness Date/Time: 11/25/23 14:24 Chief Complaint: Chest pain, shortness of breath for 2 days Narrative: HPI: 58-year-old male with tobacco abuse; no known prior cardiac history. Patient presented to [facility] Emergency Room on 11/25/2023 with 2 day history of intermittent chest pain and shortness of breath. Patient reports that he had intermittent chest pain for last couple of days which got worse today. In addition, he has been experiencing shortness of breath. No palpitation, dizziness or syncope. Patient reports that he had COVID 19 infection about 2 weeks ago which did not require hospitalization. Denies any known prior cardiac history. Patient is a smoker, smokes about 1 pack per day. He gives family history of CAD in his uncles. Patient's EKG at presentation showed sinus tachycardia, left bundle branch block. Given patient's clinical presentation with chest pain and presumably new left bundle branch block, cardiac catheterization lab was activated. Emergent coronary angiogram did not show any significant obstructive CAD, however, left ventriculogram showed severe LV systolic dysfunction with ejection fraction about 15% with significantly elevated LVEDP at 37 mmHg. Review of Systems Review of Systems: General: Negative for fever, chills, fatigue Psychological: Negative for anxiety, depression Ophthalmic: negative for loss of vision ENT: Negative for epistaxis, headaches Allergy and immunology: Negative for hives, nasal congestion Hematologic and lymphatic: Negative for overt bleeding problems Endocrine: Negative for hot flashes, palpitations Respiratory: Negative for cough, hemoptysis Cardiovascular: Positive for chest pain, shortness of breath Gastrointestinal: Negative for abdominal pain, nausea, vomiting, hematochezia Musculoskeletal: Negative for myalgia, joint pains Neurological: Negative for weakness Dermatological: Negative for rash, skin discoloration PMFSH Past Medical History Medical History Arthritis Colon cancer screening Hypertension Multiple kidney stones Seasonal allergies Tendinitis of left rotator cuff Trigger point of left shoulder region Surgical History Surgical History No significant past surgical history Family History Family History Other Arthritis Diabetes mellitus Heart disease Hypertension Malignant neoplasm Social History Social History Smoking packs per day: 0.5 Smoking cigarettes per day: 10.0 Years smoked: 30 Smoking pack-years: 15.00 Smoking status: Current every day smoker Tobacco type: cigarettes Alcohol intake: current Alcohol use details: occasionally Substance use: never Substance use type: does not use Living arrangements: with family Occupation/Education: occupation Gender identity (if verbalized by the patient): Male Spiritual care concerns: No Meds Home Medications and Allergies Home Medications Medication Instructions Recorded Confirmed Type multivitamin with minerals-folic 0.4 tablet PO DAILY 04/28/23 05/11/23 History acid 0.4 mg tablet Allergies Allergy/AdvReac Type Severity Reaction Status Date / Time No Known Allergies Allergy Verified 05/11/23 07:39 Vital Signs Vital Signs - 24 hr 11/25/23 13:15 11/25/23 13:47 Temperature 36.4 C Pulse Rate 107 H 78 Respiratory Rate 17 Blood Pressure 134/97 H Pulse Oximetry 95 Exam Narrative: PHYSICAL EXAMINATION: GENERAL: Alert, oriented, no acute distress MENTAL STATUS: anxious EYES: Extraocular movements intact, no pallor EARS: External ears appear normal, hearing grossly normal NOSE: Normal and patent, no discharge MOUTH: Mucous membranes moist, tongue normal NECK: Supp
--- NOTE | 2023-11-25 14:27 | PC.NURSE ---
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
--- NOTE | 2023-11-25 14:42 | WPDCARDPROC ---
Cardiac Cath Procedure Note Date of procedure:: 11/25/23 Performing physician:: Shemar Oneal MD Procedure Procedure note:: LEFT HEART CATHETERIZATION AND CORONARY ANGIOGRAM REPORT DATE OF PROCEDURE: 11/25/2023 INDICATION FOR PROCEDURE: chest pain, shortness of breath, left bundle-branch block BRIEF CLINICAL HISTORY:Patient presented to [facility] Emergency Room on 11/25/2023 with 2 day history of intermittent chest pain and shortness of breath.? Patient reports that he had intermittent chest pain for last couple of days which got worse today.? In addition, he has been experiencing shortness of breath.? No palpitation, dizziness or syncope.? Patient reports that he had COVID 19 infection about 2 weeks ago which did not require hospitalization.? Denied any known prior cardiac history.? Patient is a smoker, smokes about 1 pack per day.? He gives family history of CAD in his uncles. Patient's EKG at presentation showed sinus tachycardia, left bundle branch block.? Given patient's? clinical presentation with chest pain and presumably new left bundle branch block, cardiac catheterization lab was activated.? PROCEDURES PERFORMED: 1. Left heart catheterization- Selective left and right coronary angiogram; left ventriculogram and hemodynamic assessment 2. Deployment of Mynx hemostatic device 3. Moderate sedation-CPT code 52939 MODERATE SEDATION: Midazolam 1 mg; fentanyl 25 mcg; Start time 1358 , Stop time 1412 ; Total ocai-bm-qrra time 14 minutes; Letty Alvarado RN was trained observer for moderate sedation. ACCESS SITE: Right common femoral artery PROCEDURE NOTE: patient was emergently brought to catheterization lab and prepped and draped in a usual sterile manner. After local anesthesia with lidocaine, right common femoral artery access was taken with micropuncture needle followed by insertion of a 6 Tristanian sheath. Selective left and right coronary angiogram was performed using 6 Tristanian 3.5 CLS guide catheter and JR4 catheters respectively. Orthogonal views were taken. Next, a 5 Tristanian pigtail catheter was advanced in the LV cavity and was flushed with normal saline. LV pressure measurement was performed. After this, left ventriculogram was performed. The catheter was flushed again, and gradient across the aortic valve was measured on the pullback of the catheter. Finally, Mynx vascular closure device was deployed. Patient tolerated procedure well without any immediate procedure related complications. FINDINGS: LEFT MAIN CORONARY: large caliber vessel, no significant focal stenosis. LEFT ANTERIOR DESCENDING ARTERY: Medium to large caliber vessel, tapers distally and reaches LV apex. Minor irregularities are seen in the mid segment, no significant focal stenosis. Major diagonal branch branch has no significant focal stenosis. LEFT CIRCUMFLEX ARTERY: Large caliber vessel, gives rise to large caliber OM 1 and small to medium caliber OM2 -OM3 branches without focal stenosis. RIGHT CORONARY ARTERY: Large caliber, dominant vessel, gives rise to medium to large caliber PDA branch and small-caliber PLV branch, no significant focal stenosis. LEFT VENTRICULOGRAM: Severe global LV systolic dysfunction, ejection fraction about 15%,; LVEDP severely elevated at 37 mmHg. HEMODYNAMIC ASSESSMENT: Opening pressure 122/99 mmHg , closing pressure 136/101 mmHg , LVEDP 37 mmHg , no significant gradient across aortic valve on the pullback of pigtail catheter. CONCLUSIONS: 1. No angiographically significant obstructive CAD. 2. Severe global LV systolic dysfunction, ejection fraction about 15%; LVEDP significantly elevated at 37 mmHg. PLAN/RECOMMENDATIONS: - with ongoing chest discomfort and significantly elevated LVEDP, patient was initiated on IV nitroglycerin. - IV diuresis. ? Will determine need for inotropic support. Other standard treatment for CHF with reduced ejection fraction when able (BB, ARNI, SGLT2i, MRA). - [facility]
--- NOTE | 2023-11-25 14:50 | PC.NURSE ---
3500 This patient, Roland Gutierrez, was admitted to [facility]. Patient/family oriented to hospital policies and general routines including ID bracelet, bed and alarms, visiting hours, pain management, procedures, bathroom and other care routines, personal items, smoking policy, room service/diet, and visiting hours. Information on how to activate the Rapid Response Team has been discussed. Patient/Family are encouraged to report perceived risks to care and to ask questions if they do not understand what they are told or what they should do.
--- NOTE | 2023-11-25 14:53 | WPDCNINT ---
Assessment and Plan Assessment and plan (1) Chest pain: Code(s): R07.9 - Chest pain, unspecified Status: Acute Assessment and Plan: 11/25: Patient presented with 2 day history of intermittent chest pain along with shortness of breath which got worse this morning. Denies any palpitation, dizziness or syncope. He does report of COVID infection but 2 weeks ago which did not require hospitalization. -In the ER patient was in sinus tachycardia with left bundle-branch block. Patient was taken the cath the laboratory equipment installer and was found to have no significant obstructive coronary artery disease. However his LV robles showed severe LV systolic dysfunction with ejection fraction of 15% with significantly elevated LVEDP EF 37 mmHg. Patient was started on nitro glycerin infusion -discussed with cardiology -started on diuretics per Cardiology Lasix 40 mg IV b.i.d. -continue nitroglycerin infusion (2) LBBB (left bundle branch block): Code(s): I44.7 - Left bundle-branch block, unspecified Status: Acute Assessment and Plan: New onset level and is block likely related to severe cardiomyopathy, as above (3) Cardiomyopathy: Code(s): I42.9 - Cardiomyopathy, unspecified Status: Acute Assessment and Plan: Treatment as above -patient will require guideline directed medical therapy for heart failure, cardiology to address (4) Tobacco abuse: Code(s): Z72.0 - Tobacco use Status: Acute Assessment and Plan: Have counseled patient for cessation of smoking, he is receptive to stop smoking Plan DVT prophylaxis: Status post cardiac catheterization Stress ulcer prophylaxis: Not indicated Nutrition: Heart healthy diet Code Status: Full code Critical Care Time Spent: 43 minutes Due to a high probability of clinically significant, life threatening deterioration, the patient required my highest level of preparedness to intervene emergently and I personally spent this critical care time directly and personally managing the patient. This critical care time included obtaining a history; examining the patient; pulse oximetry; ordering and review of studies; arranging urgent treatment with development of a management plan; evaluation of patient's response to treatment; frequent reassessment; and discussions with other providers. It was exclusive of separately billable procedures and treating other patients and teaching time. Please see Assessment and Plan section and the rest of the note for further information on patient assessment and treatment This dictation may have been done utilizing a voice recognition system. Attempts have been made to correct errors. However, there may be uncorrected grammatical, spelling, and recognitions errors present. Slot Key Person Consult Note Consult date: 11/25/23 Reason for consult: Chest pain, shortness a brief, tobacco use HPI: Roland Gutierrez is a 58 year old male with past medical history of hypertension, kidney stones, seasonal allergies, tobacco use presented the ED on 11/25/2023 with 2 day history of intermittent chest pain along with shortness of breath which got worse this morning. Denies any palpitation, dizziness or syncope. He does report of COVID infection but 2 weeks ago which did not require hospitalization. In the ER patient was in sinus tachycardia with left bundle-branch block. Patient was taken the cath the laboratory equipment installer and was found to have no significant obstructive coronary artery disease. However his LV gram showed severe LV systolic dysfunction with ejection fraction of 15% with significantly elevated LVEDP EF 37 mmHg. Patient was started on nitro glycerin infusion transferred to the ICU for further management. Patient seen and examined the ICU upon arrival, denies any chest pain, shortness a abdominal pain, nausea, vomiting at this time. Remains tachycardic in the 110s, on room air with adequate O2 sats. Patient is awake, alert, oriented, answers to
[2023-11-25] MEDS: NITROGLYCERIN/D5W 200 MCG/ML 50 MG/250 ML BTL 6 MG IV CONT (15:13)
[2023-11-25] MEDS: SODIUM CHLORIDE 0.9% IV 1,000 ML 125 ML IV CONT (15:24)
[2023-11-25 15:25] LABS: Iron 79 ug/dL (49-181)
[2023-11-25 15:33] LABS: Percent Iron Saturation 23 % (20-50)
[2023-11-25 16:04] LABS: HIV 1/2 Ab P24 Ag Result Negative (Negative)
[2023-11-25 16:25] LABS: Hemoglobin A1C 5.3 % (<5.7)
[2023-11-25] MEDS: FUROSEMIDE INJ 40 MG/4 ML VIAL IV PUSH (16:49)
[2023-11-25] MEDS: ACETAMINOPHEN 325 MG TABLET 650 MG PO (21:07)
[2023-11-25] MEDS: carvediloL 3.125 MG TABLET PO (22:37)
[2023-11-26] VITALS (19 sets, daily range): BP systolic 109–134; BP diastolic 75–99; PULSE 87–102; RESP 13–26; TEMP 36.5–36.9; O2SAT 94–99
--- NOTE | 2023-11-26 | ECHO_ITS ---
Patient Info Name: Roland Gutierrez Age: 58 years : 1965 Gender: Male Ht: 75 in Wt: 246 lbs BSA: 2.45 m2 HR: 92 bpm BP: 123 / 93 mmHg Heart Rhythm: Sinus Rhythm Technical Quality: Fair Exam Date: 11/26/2023 10:45 AM Exam Location: Echo Lab Exam Room: ICU8 Patient Status: Inpatient Admit Date: 11/25/2023 Staff Ordering Physician: Laxmi Lang DO Rotary Pump Operator: Geneva Stephens RDCS Attending Provider: Shemar Oneal MD Referring Physician: Precious BARROSO; Exam Type: CA echo doppler color flow Study Info Indications - DECREASED EF S/P CATH 11/25/23 Complete two-dimensional, color flow and Doppler transthoracic echocardiogram is performed with contrast to opacify the left ventricle and to improve the deliniation of the left ventricle endocardial borders. Contrast/Agitated Saline Contrast/Ag. Saline: Definity Amount: 3.00 ml Administered By: Geneva Stephens [facility] Existing IV Access: Yes IV Access Condition: patent with no signs of infiltration Summary 1. There is thrombus visualized in the left ventricle. 2. Left ventricular chamber dimension is severely enlarged. 3. Left ventricular systolic function is severely reduced, estimated at <15%. 4. There is mildly increased left ventricular wall thickness. 5. Left ventricular septal wall motion is abnormal with septal motion related to bundle branch block. 6. The left ventricular diastolic function is grade II diastolic dysfunction. 7. There is moderate to severe mitral valve regurgitation. 8. There is mild to moderate tricuspid valve regurgitation. 9. Mild pulmonary hypertension, estimated pulmonary arterial systolic pressure is 42 mmHg. Left Ventricle There is thrombus visualized in the left ventricle. Left ventricular chamber dimension is severely enlarged. Left ventricular systolic function is severely reduced, estimated at <15%. There is mildly increased left ventricular wall thickness. Left ventricular septal wall motion is abnormal with septal motion related to bundle branch block. The left ventricular diastolic function is grade II diastolic dysfunction. Right Ventricle Right ventricular chamber dimension is normal. Right ventricular systolic function is normal. Left Atria Left atrial chamber dimension is normal. Right Atria Right atrial chamber dimension is normal. Atrial Septum Intact interatrial septum visualized by color flow imaging. Aortic Valve The aortic valve is trileaflet. There is mild aortic valve sclerosis. There is no aortic valve stenosis. There is trace aortic valve regurgitation. Pulmonic Valve The pulmonic valve is normal. There is no pulmonic valve stenosis. There is trace pulmonic regurgitation. Mitral Valve The mitral valve has normal leaflets. There is no mitral valve stenosis. There is moderate to severe mitral valve regurgitation. Tricuspid Valve The tricuspid valve leaflets are normal. There is no significant tricuspid valve stenosis. There is mild to moderate tricuspid valve regurgitation. Mild pulmonary hypertension, estimated pulmonary arterial systolic pressure is 42 mmHg. Pericardium/Pleural The pericardium appears normal. There is no pericardial effusion. Inferior Vena Cava Normal inferior vena cava with >50% collapse upon inspiration consistent with normal right atrial pressure, 10 mmHg. Aorta The aortic root size at the sinus of Valsalva is normal. Left Ventricular Outflow Tract Name
[2023-11-26 04:41] LABS: Basophils Percent Auto 0.5 % (0.2-1.2); Eosinophils Absolute Auto 0.2 K/mm3 (0-0.3); Eosinophils Percent Auto 2.7 % (0-4.4); Hematocrit 44.7 % (42.0-52.0); Hemoglobin 14.3 g/dL (14.0-18.0); Immature Granulocyte Absolute 0.02 K/mm3 (0.00-0.031); Immature Granulocyte Percent A 0.2 % (0-0.5); Lymphocytes Absolute Auto 2.08 K/mm3 (0.9-3.2); Lymphocytes Percent Auto 25.1 % (18.3-44.2); Mean Corpuscular Hemoglobin 30.1 pg (26-34); Mean Corpuscular Volume 94.1 fl (80-100); Mean Platelet Volume 10.2 fl (7.4-10.4); Monocytes Absolute Auto 0.7 K/mm3 (0.1-0.6); Monocytes Percent Auto 8.2 % (2.6-8.5); Neutrophils Absolute Auto 5.2 K/mm3 (1.3-6.7); Neutrophils Percent Auto 63.3 % (45.5-73.1); Platelet Count Result 269 k/mm3 (150-375); Red Blood Count 4.75 M/mm3 (4.6-6.20); Red Cell Distribution Width 12.3 % (11.5-14.5); White Blood Count 8.3 K/mm3 (4.5-10.0)
[2023-11-26 05:07] LABS: Alanine Aminotransferase 33 U/L (6-50); Albumin Level 3.6 g/dL (3.5-5.1); Alkaline Phosphatase 124 U/L (38-126); Anion Gap 8 mmol/L (8-16); Aspartate Amino Transferase 40 U/L (17-59); Bilirubin,Total 1.2 mg/dL (0.2-1.3); Blood Urea Nitrogen 14 mg/dL (9-20); Calcium 8.2 mg/dL (8.4-10.2); Carbon Dioxide 23 mmol/L (22-30); Chloride 108 mmol/L (98-107); Estimated CRCL calculation 96 ml/min; Estimated Glomerular Filt Rate > 60; Glucose 109 mg/dL (65-110); Magnesium 2.2 mg/dL (1.6-2.3); Phosphorus 3.5 mg/dL (2.5-4.5); Sodium 139 mmol/L (137-145)
[2023-11-26 08:47] LABS: MRSA (PCR) NOT DETECTED (NOT DETECTE)
[2023-11-26] MEDS: FUROSEMIDE INJ 40 MG/4 ML VIAL IV PUSH ×2 (08:47→17:52)
[2023-11-26] MEDS: carvediloL 3.125 MG TABLET PO ×2 (08:47→20:35)
[2023-11-26] MEDS: lisinopriL 5 MG TABLET PO (08:47)
--- NOTE | 2023-11-26 08:52 | PM.PNCARD ---
Progress Note: A&P Assessment and Plan (1) Decompensated heart failure: Code(s): I50.9 - Heart failure, unspecified Status: Acute Assessment and Plan: 58-year-old male with tobacco abuse, no known prior cardiac history. He presented to hospital with about 2 day history of intermittent chest pain and shortness of breath. He reported recent COVID-19 infection about 2 weeks ago. EKG showed left bundle branch block Of unknown duration. In light of patient's clinical presentation and LBBB, emergent coronary angiogram was performed which did not show any significant obstructive CAD. Patient was found to have severe LV systolic dysfunction , EF about 15% with significantly elevated LVEDP at 37 mmHg. First set of troponin elevated. 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 Echo showed severely reduce d LV systolic dysfunction, EF <15% with grade II diastolic dysfunction, LV thrombus. Continue IV furosemide 40mg BID for today Will initiate GDMT with coreg, spironolactone, jardiance, and Entresto (Entresto to start tomorrow evening, CARLOS washout) LifeVest Will initiate a/c with Xarelto for LV thrombus (2) LBBB (left bundle branch block): Code(s): I44.7 - Left bundle-branch block, unspecified Status: Acute Assessment and Plan: LBBB in the setting of severe nonischemic cardiomyopathy. Management as above. (3) Tobacco abuse: Code(s): Z72.0 - Tobacco use Status: Acute Assessment and Plan: Smoking cessation counseling was done. (4) Cardiomyopathy: Code(s): I42.9 - Cardiomyopathy, unspecified Status: Acute Assessment and Plan: Severe. EF <15%. (5) Left heart thrombus: Code(s): I51.3 - Intracardiac thrombosis, not elsewhere classified Status: Acute Assessment and Plan: Started on Xarelto Subjective Date/time seen: 11/26/23 08:52 Interval history: Cardiology follow up for cardiomyopathy, CHF He is feeling okay today. Denies any shortness of breath, chest pain, palpitations. Review of Systems Review of Systems: All systems reviewed & are unremarkable except as noted in HPI and below Exam Const: General: comfortable, no acute distress, alert and awake Orientation/consciousness: patient oriented x3 HENMT: Head: normal to inspection Eyes: General: appearance normal, both eyes and all related structures Pupils: Equal, round and reactive pupils present Neck: Neck: normal visual inspection, supple and no JVD Carotids: normal carotid upstroke Resp: Effort & Inspection: normal respiratory effort Auscultation: rales Cardio: Rate: regular rate Rhythm: regular rhythm Heart sounds: S1 normal heart sound present, S2 normal heart sound present and no murmurs GI: Auscultation: normal bowel sounds Skin: General skin exam: normal color Neuro: General: patient oriented x3 Cranial nerves: Yes Equal, round and reactive pupils present Extrem: General: normal to inspection Other: no edema Psych: Appearance: grossly normal Mental Status: mental status grossly normal Objective Data Vital Signs Vital Signs: Vital Signs - 24 hr 11/25/23 13:15 11/25/23 13:47 11/25/23 14:30 Temperature 36.4 C 37.1 C Pulse Rate 107 H 78 111 H Pulse Rate [Right Pedal (Dorsalis Pedis)] 111 H Respiratory Rate 17 23 H Blood Pressure 134/97 H 152/111 H Pulse Oximetry 95 93 Oxygen Delivery Oxygen Flow Rate 11/25/23 15:05 11/25/23 15:13 11/25/23 15:35 Temperature Pulse Rate 108 H 109 H 106 H Pulse Rate [Right Pedal (Dorsalis Pedis)] 111 H 111 H Respiratory Rate 21 H 17 Blood Pressure 151/104 H 145/100 H 149/108 H Pulse Oximetry 93 97 Oxygen Delivery Oxygen Flow Rate 11/25/23 16:00 11/25/23 16:00 11/25/23 16:00 Temperature 37.1 C Pulse Rate 106 H 107 H Pulse Rate [Right Pedal (Dorsalis Pedis)] Respiratory Rate 19 Blood Pressure 148/107 H Pulse Oximetry 97 97 Ox
--- NOTE | 2023-11-26 11:05 | WPDINTPN ---
Progress Note: A&P Assessment and Plan (1) Chest pain: Code(s): R07.9 - Chest pain, unspecified Status: Acute Assessment and Plan: 11/25: Patient presented with 2 day history of intermittent chest pain along with shortness of breath which got worse this morning. Denies any palpitation, dizziness or syncope. He does report of COVID infection but 2 weeks ago which did not require hospitalization. -In the ER patient was in sinus tachycardia with left bundle-branch block. Patient was taken the cath the label tacker and was found to have no significant obstructive coronary artery disease. However his LV robles showed severe LV systolic dysfunction with ejection fraction of 15% with significantly elevated LVEDP EF 37 mmHg. Patient was started on nitro glycerin infusion -discussed with cardiology -continue, Coreg, lisinopril, Entresto, spironolactone -off nitroglycerin infusion (2) LBBB (left bundle branch block): Code(s): I44.7 - Left bundle-branch block, unspecified Status: Acute Assessment and Plan: New onset level and is block likely related to severe cardiomyopathy, as above (3) Cardiomyopathy: Code(s): I42.9 - Cardiomyopathy, unspecified Status: Acute Assessment and Plan: Treatment as above (4) Tobacco abuse: Code(s): Z72.0 - Tobacco use Status: Acute Assessment and Plan: Have counseled patient for cessation of smoking, he is receptive to stop smoking Plan DVT prophylaxis: Status post cardiac catheterization Stress ulcer prophylaxis: Not indicated Nutrition: Heart healthy diet Code Status: Full code Critical Care Time Spent: 31 minutes Due to a high probability of clinically significant, life threatening deterioration, the patient required my highest level of preparedness to intervene emergently and I personally spent this critical care time directly and personally managing the patient. This critical care time included obtaining a history; examining the patient; pulse oximetry; ordering and review of studies; arranging urgent treatment with development of a management plan; evaluation of patient's response to treatment; frequent reassessment; and discussions with other providers. It was exclusive of separately billable procedures and treating other patients and teaching time. Please see Assessment and Plan section and the rest of the note for further information on patient assessment and treatment This dictation may have been done utilizing a voice recognition system. Attempts have been made to correct errors. However, there may be uncorrected grammatical, spelling, and recognitions errors present. Subjective Date/time seen: 11/26/23 11:05 Interval history: Reason for consult: Chest pain, shortness of breath, tobacco use, new onset acute cardiomyopathy with EF of 15% on left ventriculogram done during cardiac catheterization on 11/25/2023. 11/26/2023: Patient seen and examined the ICU, is awake, alert, oriented. Denies any chest pain, shortness of breath, abdominal pain, nausea, vomiting. States he feels much better this morning. Urine output has been adequate in response to diuresis, hemodynamically stable, afebrile Review of Systems Review of Systems: All systems reviewed & are unremarkable except as noted in HPI and below Exam Narrative: General: Pleasant gentleman in no acute distress HEENT:? Pupils equal and reactive, sclera is clear, moist oral mucosa Neck:? Supple Respiratory:? Clear to auscultation bilaterally, no wheezing, adequate air entry Cardiac:? S1-S2 normal, sinus tachycardic Abdomen:? Soft, nontender, nondistended, normoactive bowel sounds Extremities:? No edema, palpable pedal pulses, right groin site without any evidence of hematoma or ecchymosis, dressing in place Neuro:? Patient is awake, alert, oriented x3, nonfocal, able to answer questions appropriately and follows simple commands Skin:? No lesions noted Psych:? N
[2023-11-26] MEDS: PERFLUTREN LIPID MICROSPHERES 1.5 ML VIAL DILUTED TO 10 ML TOTAL VOLUME IV PUSH (11:15)
--- NOTE | 2023-11-26 11:40 | IVDEFINITY ---
Prior to administration of IV Definity the patient was educated on the risks and benefits of the imaging enhancing agent including potential adverse side effects. The patient verbalized understanding. Allergies were verified. No exclusion criteria were identified and at least one of the following inclusion criteria were met: 1) physician request, 2) patient technically difficult to image (per the [place] [employer] guidelines of two or more segments not discernable within the apical view), or 3) questionable left ventricular function. ?
[2023-11-26] MEDS: ACETAMINOPHEN 325 MG TABLET 650 MG PO (15:19)
[2023-11-26] MEDS: RIVAROXABAN 20 MG TABLET PO (17:52)
[2023-11-27] VITALS (17 sets, daily range): BP systolic 100–123; BP diastolic 57–98; PULSE 76–91; RESP 18–20; TEMP 35.9–36.7; O2SAT 93–96
[2023-11-27] MEDS: FUROSEMIDE INJ 40 MG/4 ML VIAL IV PUSH ×2 (08:53→17:36)
[2023-11-27] MEDS: EMPAGLIFLOZIN 10 MG TABLET PO (08:53)
[2023-11-27] MEDS: SPIRONOLACTONE 25 MG TABLET PO (08:53)
[2023-11-27] MEDS: carvediloL 3.125 MG TABLET PO ×2 (08:53→20:22)
[2023-11-27] MEDS: ACETAMINOPHEN 325 MG TABLET 650 MG PO (08:59)
--- NOTE | 2023-11-27 09:02 | PM.PNCARD ---
Progress Note: A&P Assessment and Plan (1) Cardiomyopathy: Code(s): I42.9 - Cardiomyopathy, unspecified Status: Acute Plan Severe nonischemic cardiomyopathy presumptively postviral from coronavirus infection couple of weeks ago. He is not in overt/decompensated heart failure despite very low ejection fraction. Guideline directed medical therapy has been initiated. At least so far he has not demonstrated any problematic hypotension. He should receive LifeVest device today and anticipate discharge in the next 24-48 hours if he is clinically stable. Follow-up in the office will be arranged and I would also encourage referral to the heart failure team at [place] given his relatively young age and lack of comorbidities since he would be a candidate for aggressive support if things deteriorate despite appropriate medical therapy Raleigh Cohn MD [facility] Subjective Date/time seen: Date of service: 11/27/23 09:02 Interval history: Cardiology follow up for cardiomyopathy, CHF He is feeling okay today. Denies any shortness of breath, chest pain, palpitations. 11/27/2023: Patient looks and feels well. Discussed his diagnosis in detail. He understands the situation well and has no additional questions. Waiting for LifeVest device which is expected to arrive today. Exam Narrative: PHYSICAL EXAMINATION: GENERAL: Alert, oriented, no acute distress MENTAL STATUS: anxious EYES: Extraocular movements intact, no pallor EARS: External ears appear normal, hearing grossly normal NOSE: Normal and patent, no discharge MOUTH: Mucous membranes moist, tongue normal NECK: Supple, no JVD CHEST: Good respiratory effort, clear to auscultation HEART: tachycardia, regular rhythm, normal S1 and S2, S3/S4 gallop ABDOMEN: Soft, nontender NEUROLOGICAL: Alert, oriented, normal speech, no gross motor deficits MUSCULOSKELETAL: No major deformity, no amputation EXTREMITIES: No pedal edema, no clubbing, no cyanosis SKIN: no rash on the exposed area, no cyanosis PSYCHIATRIC: anxious, no agitation Const: General: comfortable, no acute distress, alert and awake Orientation/consciousness: patient oriented x3 HENMT: Head: normal to inspection Eyes: General: appearance normal, both eyes and all related structures Pupils: Equal, round and reactive pupils present Neck: Neck: normal visual inspection, supple and no JVD Carotids: normal carotid upstroke Resp: Effort & Inspection: normal respiratory effort Auscultation: rales Cardio: Rate: regular rate Rhythm: regular rhythm Heart sounds: S1 normal heart sound present, S2 normal heart sound present and no murmurs GI: Auscultation: normal bowel sounds Skin: General skin exam: normal color Neuro: General: patient oriented x3 Cranial nerves: Yes Equal, round and reactive pupils present Extrem: General: normal to inspection Other: no edema Psych: Appearance: grossly normal Mental Status: mental status grossly normal Objective Data Vital Signs Vital Signs: Vital Signs - 24 hr 11/26/23 10:00 11/26/23 11:50 11/26/23 12:00 Temperature 36.6 C Pulse Rate 99 102 H 96 Respiratory Rate 26 H Blood Pressure 119/97 H Pulse Oximetry 99 Oxygen Delivery 11/26/23 12:06 11/26/23 14:00 11/26/23 13:08 Temperature Pulse Rate 95 91 94 Respiratory Rate 22 H Blood Pressure Pulse Oximetry 94 94 Oxygen Delivery Room Air Room Air 11/26/23 16:00 11/26/23 16:00 11/26/23 16:00 Temperature 36.9 C Pulse Rate 92 92 92 Respiratory Rate 22 H 22 H Blood Pressure 109/81 Pulse Oximetry 96 96 Oxygen Delivery Room Air 11/26/23 18:00 11/26/23 19:41 11/26/23 20:00 Temperature 36.9 C Pulse Rate 88 88 Respiratory Rate 20 Blood Pressure 127/99 H Pulse Oximetry 95 Oxygen Delivery Room Air 11/26/23 20:35 11/26/23 20:00 11/26/23 22:00 Temperature Pulse Rate 87 92 92 Respiratory Rate Blood Pressure
--- NOTE | 2023-11-27 14:31 | PC.NURSE ---
This patient, Roland Gutierrez, was transferred to [facility] on 11/27/23 at 1225. Personal belongings sent with patient. Report given to Pilar. Appropriate documentation sent with patient.
[2023-11-27] MEDS: RIVAROXABAN 20 MG TABLET PO (17:36)
[2023-11-27] MEDS: SACUBITRIL/VALSARTAN 24-26 MG TABLET 1 TAB PO (20:22)
[2023-11-28] VITALS (15 sets, daily range): BP systolic 99–108; BP diastolic 67–78; PULSE 74–97; RESP 16–20; TEMP 36.2–37.7; O2SAT 94–97
[2023-11-28 04:55] LABS: Hematocrit 48.8 % (42.0-52.0); Hemoglobin 15.6 g/dL (14.0-18.0); Mean Corpuscular Hemoglobin 29.7 pg (26-34); Mean Corpuscular Volume 92.8 fl (80-100); Mean Platelet Volume 10.2 fl (7.4-10.4); Platelet Count Result 261 k/mm3 (150-375); Red Blood Count 5.26 M/mm3 (4.6-6.20); Red Cell Distribution Width 12.3 % (11.5-14.5); White Blood Count 7.6 K/mm3 (4.5-10.0)
[2023-11-28 05:08] LABS: Anion Gap 7 mmol/L (8-16); Blood Urea Nitrogen 18 mg/dL (9-20); Carbon Dioxide 29 mmol/L (22-30); Chloride 103 mmol/L (98-107); Estimated CRCL calculation 75 ml/min; Estimated Glomerular Filt Rate > 60; Glucose 95 mg/dL (65-110); Magnesium 2.2 mg/dL (1.6-2.3); Potassium 3.4 mmol/L (3.4-5.0); Sodium 139 mmol/L (137-145)
[2023-11-28] MEDS: carvediloL 3.125 MG TABLET PO (10:37)
[2023-11-28] MEDS: SACUBITRIL/VALSARTAN 24-26 MG TABLET 1 TAB PO ×2 (10:38→21:05)
[2023-11-28] MEDS: EMPAGLIFLOZIN 10 MG TABLET PO (10:38)
[2023-11-28] MEDS: FUROSEMIDE INJ 40 MG/4 ML VIAL IV PUSH (10:38)
[2023-11-28] MEDS: SPIRONOLACTONE 25 MG TABLET PO (10:38)
[2023-11-28] MEDS: POTASSIUM CHLORIDE 20 MEQ ER TABLET 40 MEQ PO (13:25)
--- NOTE | 2023-11-28 13:27 | PM.PNCARD ---
Progress Note: A&P Assessment and Plan (1) Cardiomyopathy: Qualifiers: Cardiomyopathy type: other Qualified Code(s): I42.8 - Other cardiomyopathies Code(s): I42.9 - Cardiomyopathy, unspecified Status: Acute Assessment and Plan: Severe LV systolic dysfunction EF 15% etiology unclear likely nonischemic post viral with recent COVID infection. Patient at risk for sudden cardiac secondary to ventricular tachycardia and her ventricular fibrillation. LifeVest has been fitted. Continue aggressive guideline directed medical therapy as tolerated. Continue spironolactone 25 mg daily, Jardiance 10 mg daily, Entresto 24/26 mg twice daily. Increase carvedilol to 6.25 mg twice daily as BP permits. Monitor closely. Counseled on compliance with life vest. Outpatient follow-up anticipated referral to [facility]. (2) Acute HFrEF (heart failure with reduced ejection fraction): Code(s): I50.21 - Acute systolic (congestive) heart failure Status: Acute Assessment and Plan: Reason compensated. Received IV Lasix this morning. Change to oral Lasix 40 mg daily. Monitor potassium in a.m.. Monitor tolerance and volume status on oral Lasix prior to discharge. As above, continue guideline directed medical therapy. Monitor input and output, daily weight. (3) Left heart thrombus: Code(s): I51.3 - Intracardiac thrombosis, not elsewhere classified Status: Acute Assessment and Plan: Left ventricular apical thrombus. Continue systemic anticoagulation with Xarelto 20 mg daily for stroke risk reduction. Monitor for bleeding. (4) Nonsustained ventricular tachycardia: Code(s): I47.29 - Other ventricular tachycardia Status: Acute Assessment and Plan: Fourteen beat run symptomatic nonsustained VT. Will keep overnight to ensure stability without significant recurrence. We discussed this risk at great length hence the importance of compliance with life vest. Increase carvedilol to 6.25 mg twice daily as tolerated for further suppression. All questions answered to patient's satisfaction. He verbalized understanding and agreed. (5) LBBB (left bundle branch block): Code(s): I44.7 - Left bundle-branch block, unspecified Status: Acute Assessment and Plan: Chronic. Subjective Date/time seen: Date of service: 11/28/23 13:27 Interval history: Cardiology follow up for cardiomyopathy, CHF He is feeling okay today. Denies any shortness of breath, chest pain, palpitations. 11/27/2023: Patient looks and feels well. Discussed his diagnosis in detail. He understands the situation well and has no additional questions. Waiting for LifeVest device which is expected to arrive today. Date of service 11/28/2023: Patient feels better since admission but still notes some exertional dyspnea. He had a 14 beat run of nonsustained ventricular tachycardia which he was aware as reported. Maintaining sinus rhythm. Denies dizziness or chest pain. Blood pressure stable but marginal. Tolerating medications thus far. Received IV Lasix today, potassium 3.4. Minimal edema. Family at bedside. Lengthy discussion held with regards to plan of care. All questions answered to their satisfaction. Review of Systems Review of Systems: General: Negative for fever, chills, fatigue Psychological: Negative for anxiety, depression Ophthalmic: negative for loss of vision ENT: Negative for epistaxis, headaches Allergy and immunology: Negative for hives, nasal congestion Hematologic and lymphatic: Negative for overt bleeding problems Endocrine: Negative for hot flashes, palpitations Respiratory: Negative for cough, hemoptysis Cardiovascular: Positive for chest pain, shortness of breath Gastrointestinal: Negative for abdominal pain, nausea, vomiting, hematochezia Musculoskeletal: Negative for myalgia, joint pains Neurological: Negative for weakness Dermatological: Negati
[2023-11-28] MEDS: RIVAROXABAN 20 MG TABLET PO (16:51)
[2023-11-28] MEDS: carvediloL 6.25 MG TABLET PO (21:04)
[2023-11-29] VITALS (8 sets, daily range): BP systolic 102–105; BP diastolic 64–77; PULSE 69–90; RESP 16–20; TEMP 36.1–36.4; O2SAT 95–96
[2023-11-29 05:07] LABS: Hematocrit 48.2 % (42.0-52.0); Hemoglobin 16.1 g/dL (14.0-18.0); Mean Corpuscular HGB Conc 33.4 g/dl (32-36); Mean Corpuscular Hemoglobin 30.3 pg (26-34); Mean Corpuscular Volume 90.6 fl (80-100); Mean Platelet Volume 9.9 fl (7.4-10.4); Platelet Count Result 280 k/mm3 (150-375); Red Blood Count 5.32 M/mm3 (4.6-6.20); Red Cell Distribution Width 12.2 % (11.5-14.5); White Blood Count 7.1 K/mm3 (4.5-10.0)
[2023-11-29 05:31] LABS: Anion Gap 8 mmol/L (8-16); Blood Urea Nitrogen 20 mg/dL (9-20); Calcium 9.2 mg/dL (8.4-10.2); Carbon Dioxide 26 mmol/L (22-30); Chloride 106 mmol/L (98-107); Estimated CRCL calculation 91 ml/min; Estimated Glomerular Filt Rate > 60; Glucose 99 mg/dL (65-110); Potassium 4.1 mmol/L (3.4-5.0); Sodium 140 mmol/L (137-145)
[2023-11-29] MEDS: DOCUSATE SODIUM 100 MG CAPSULE PO (10:30)
[2023-11-29] MEDS: FUROSEMIDE 40 MG TABLET PO (10:30)
[2023-11-29] MEDS: carvediloL 6.25 MG TABLET PO (10:30)
[2023-11-29] MEDS: SPIRONOLACTONE 25 MG TABLET PO (10:30)
[2023-11-29] MEDS: SACUBITRIL/VALSARTAN 24-26 MG TABLET 1 TAB PO (10:30)
[2023-11-29] MEDS: EMPAGLIFLOZIN 10 MG TABLET PO (10:30)
--- NOTE | 2023-11-29 10:42 | PM.PNCARD ---
Progress Note: A&P Assessment and Plan (1) Cardiomyopathy: Qualifiers: Cardiomyopathy type: other Qualified Code(s): I42.8 - Other cardiomyopathies Code(s): I42.9 - Cardiomyopathy, unspecified Status: Acute Assessment and Plan: Severe LV systolic dysfunction EF 15% etiology unclear likely nonischemic post viral with recent COVID infection. Patient at risk for sudden cardiac secondary to ventricular tachycardia and her ventricular fibrillation. LifeVest has been fitted. Continue aggressive guideline directed medical therapy as tolerated. Continue spironolactone 25 mg daily, Jardiance 10 mg daily, Entresto 24/26 mg twice daily. -continue carvedilol 6.25 mg twice rach Monitor closely. Counseled on compliance with life vest. Outpatient follow-up anticipated referral to [facility]. Doing well at this time. Stable for discharge home. He will follow-up in the office within 2 weeks. He is to remain off work for 2 weeks until December 16 or total otherwise advised. Patient verbalized understanding and agreed with plan of care. (2) Acute HFrEF (heart failure with reduced ejection fraction): Code(s): I50.21 - Acute systolic (congestive) heart failure Status: Acute Assessment and Plan: Compensated. Change to oral Lasix 40 mg daily. Potassium stable.. Monitor tolerance and volume status on oral Lasix prior to discharge. As above, continue guideline directed medical therapy. Monitor input and output, daily weight. Check BMP in 1 week. (3) Left heart thrombus: Code(s): I51.3 - Intracardiac thrombosis, not elsewhere classified Status: Acute Assessment and Plan: Left ventricular apical thrombus. Continue systemic anticoagulation with Xarelto 20 mg daily for stroke risk reduction. Monitor for bleeding. (4) Nonsustained ventricular tachycardia: Code(s): I47.29 - Other ventricular tachycardia Status: Acute Assessment and Plan: Fourteen beat run symptomatic nonsustained VT no recurrence. Will keep overnight to ensure stability without significant recurrence. continue lifevest for SCD prevention. - continue carvedilol 6.25 mg twice daily. no recurrent. (5) LBBB (left bundle branch block): Code(s): I44.7 - Left bundle-branch block, unspecified Status: Acute Assessment and Plan: Chronic. Subjective Date/time seen: Date of service: 11/29/23 10:42 Interval history: Cardiology follow up for cardiomyopathy, CHF He is feeling okay today. Denies any shortness of breath, chest pain, palpitations. 11/27/2023: Patient looks and feels well. Discussed his diagnosis in detail. He understands the situation well and has no additional questions. Waiting for LifeVest device which is expected to arrive today. Date of service 11/28/2023: Patient feels better since admission but still notes some exertional dyspnea. He had a 14 beat run of nonsustained ventricular tachycardia which he was aware as reported. Maintaining sinus rhythm. Denies dizziness or chest pain. Blood pressure stable but marginal. Tolerating medications thus far. Received IV Lasix today, potassium 3.4. Minimal edema. Family at bedside. Lengthy discussion held with regards to plan of care. All questions answered to their satisfaction. Date of service 11/29/2023: He is feeling well this morning. Denies dizziness, shortness of breath is much improved. No issues overnight. No recurrent VT or nonsustained VT. Tolerating medications. Potassium is within normal limits. He is comfortable going home. Review of Systems Review of Systems: General: Negative for fever, chills, fatigue Psychological: Negative for anxiety, depression Ophthalmic: negative for loss of vision ENT: Negative for epistaxis, headaches Allergy and immunology: Negative for hives, nasal congestion Hematologic and lymphatic: Negative for overt bleeding problems Endocrine: Negative f
--- NOTE | 2023-11-29 10:50 | PM.DS ---
DS: Admitting Diagnosis Discharge Date 11/29/2023 Admitting Diagnosis Cardiomyopathy, CHF DS: Discharge Diagnosis Discharge Diagnosis (1) Acute HFrEF (heart failure with reduced ejection fraction): Code(s): I50.21 - Acute systolic (congestive) heart failure Status: Acute Assessment and Plan: Compensated. Change to oral Lasix 40 mg daily. Potassium stable.. Monitor tolerance and volume status on oral Lasix prior to discharge. As above, continue guideline directed medical therapy. Monitor input and output, daily weight. Check BMP in 1 week. (2) Nonsustained ventricular tachycardia: Code(s): I47.29 - Other ventricular tachycardia Status: Acute Assessment and Plan: Fourteen beat run symptomatic nonsustained VT no recurrence. Will keep overnight to ensure stability without significant recurrence. continue lifevest for SCD prevention. - continue carvedilol 6.25 mg twice daily. no recurrent. (3) Left heart thrombus: Code(s): I51.3 - Intracardiac thrombosis, not elsewhere classified Status: Acute Assessment and Plan: Left ventricular apical thrombus. Continue systemic anticoagulation with Xarelto 20 mg daily for stroke risk reduction. Monitor for bleeding. (4) Cardiomyopathy: Qualifiers: Cardiomyopathy type: other Qualified Code(s): I42.8 - Other cardiomyopathies Code(s): I42.9 - Cardiomyopathy, unspecified Status: Acute Assessment and Plan: Severe LV systolic dysfunction EF 15% etiology unclear likely nonischemic post viral with recent COVID infection. Patient at risk for sudden cardiac secondary to ventricular tachycardia and her ventricular fibrillation. LifeVest has been fitted. Continue aggressive guideline directed medical therapy as tolerated. Continue spironolactone 25 mg daily, Jardiance 10 mg daily, Entresto 24/26 mg twice daily. -continue carvedilol 6.25 mg twice rach Monitor closely. Counseled on compliance with life vest. Outpatient follow-up anticipated referral to [facility]. Doing well at this time. Stable for discharge home. He will follow-up in the office within 2 weeks. He is to remain off work for 2 weeks until December 16 or total otherwise advised. Patient verbalized understanding and agreed with plan of care. (5) LBBB (left bundle branch block): Code(s): I44.7 - Left bundle-branch block, unspecified Status: Acute Assessment and Plan: Chronic. DS: Summary Hospital Course Reason for hospitalization: Cardiomyopathy, CHF Hospital Course: Patient presented to [facility] Emergency Room on 11/25/2023 with 2 day history of intermittent chest pain and shortness of breath.? Patient reports that he had intermittent chest pain for last couple of days which got worse today.? In addition, he has been experiencing shortness of breath.? No palpitation, dizziness or syncope.? Patient reports that he had COVID 19 infection about 2 weeks ago which did not require hospitalization.? Denies any known prior cardiac history.? Patient is a smoker, smokes about 1 pack per day.? He gives family history of CAD in his uncles. ? Patient's EKG at presentation showed sinus tachycardia, left bundle branch block.? Given patient's? clinical presentation with chest pain and presumably new left bundle branch block, cardiac catheterization lab was activated.? Emergent coronary angiogram did not show any significant obstructive CAD, however, left ventriculogram showed severe LV systolic dysfunction with ejection fraction about 15% with significantly elevated LVEDP at 37 mmHg. Patient responded to initiation of guideline directed medical therapy and effectively diuresed with stabilization of his heart failure. He had nonsustained ventricular tachycardia on telemetry 14 beat run for which he was monitored additional 24 hours with resolution after increasing carvedilol to 6.25 mg twice daily. Potassium was repleted once unstable
== END 2023-11-29 12:32 | disposition home or self-care (01) | DRG 286 ==
LOC: ANHED 13:33 → ANHSURGERY 13:36 → ANHED 14:33 → ANHSURGERY 14:59 → ANHICU 14:59 → ANHIMU 11-27 12:58
PROVIDERS: Internal Medicine; Student in an Organized Health Care Education/Training Program; Admitting Provider Internal Medicine Cardiovascular Disease; Emergency Provider Emergency Medicine; PCP Registered Nurse; Visit Provider Internal Medicine Cardiovascular Disease
PROC: 4A023N7 Measurement of Cardiac Sampling and Pressure, Left Heart, Percutaneous Approach (ICD-10-PCS; CPT 93452; principal; 2023-11-25 13:30)
PROC: 4A023N7 Measurement of Cardiac Sampling and Pressure, Left Heart, Percutaneous Approach (ICD-10-PCS; 2023-11-25 13:30)
DX: I11.0 Hypertensive heart disease with heart failure (principal); I50.21 Acute systolic (congestive) heart failure; I47.29 Other ventricular tachycardia; B33.24 Viral cardiomyopathy; F17.210 Nicotine dependence, cigarettes, uncomplicated; I44.7 Left bundle-branch block, unspecified; I51.3 Intracardiac thrombosis, not elsewhere classified; M19.90 Unspecified osteoarthritis, unspecified site; Z86.16 Personal history of COVID-19
CPT/HCPCS: 36415; 71045; 80048; 80053; 83036; 83540; 83550; 83690; 83735; 84100; 84443; 84484; 85025; 85027; 85380; 85610; 85730; 86703; 87641; 93005; 93458; 96374; 99285; A9270; C1760; C1887; C1894; C8929; G0269; G0432; J1644; J1940; J2250; J2305; J3010; J7030; J7040; Q9957

== ENCOUNTER 2023-12-07 10:56 | Outpatient (CLI) | payer OTHER, SELFPAY ==
[2023-12-07 12:00] LABS: Anion Gap 6 mmol/L (8-16); Blood Urea Nitrogen 18 mg/dL (9-20); Calcium 9.4 mg/dL (8.4-10.2); Carbon Dioxide 24 mmol/L (22-30); Chloride 108 mmol/L (98-107); Estimated Glomerular Filt Rate > 60; Glucose 102 mg/dL (65-110); Potassium 4.1 mmol/L (3.4-5.0); Sodium 138 mmol/L (137-145)
== END 2023-12-07 10:57 | disposition home or self-care (01) ==
LOC: ANHLAB 10:58
PROVIDERS: PCP Registered Nurse; Visit Provider Internal Medicine Cardiovascular Disease
DX: E87.6 Hypokalemia (principal)
CPT/HCPCS: 36415; 80048

== ENCOUNTER 2025-08-28 07:11 | Outpatient (CLI) | payer OTHER, SELFPAY ==
--- OUTSIDE RECORDS SUMMARY | 2025-08-28 07:16 | XMS_ITS | Encounter Summary ---
Author Organization [facility] Address [facility] [place] [address] Care Team Providers Care Accounting Coordinator Name Role Phone Monica Dominique Primary Care Provider [phone] Encounter Details Date Type Department Care Team (Late st Contact Info) Description 05/30/2025 MyChart Message Enc [facility] Family & Internal Medicine [facility] [address] [place] [phone] Monica Dominique APNP [address] [place] [address] Jury Duty Social History Tobacco Use Types Packs/Day Years Used Date Smoking Tobacco: Former Cigarettes 0.5 30 0 04/11/1994 - 04/11/2024 Smokeless Tobacco: Never Alcohol Use Standard Drinks/Week Comments Yes 0 (1 standard drink = 0.6 oz pur e alcohol) socially PHQ-2 Answer Date Recorded Patient Health Questionnaire-2 Score 0 07/19/2024 Sex and Gender Information Value Date Recorded Sex Assigned at Not on file Legal Sex Male 11:39 AM CDT Gender Identity Not on file Sexual Orientation Not on file documented as of this encounter Progress Notes * SARMAD Morrow - 06/01/2025 9:45 AM CDT Ok to draft letter explaining pt is under my care and due to multiple chronic health conditions would recommend he be excused from jury duty at this time * SARMAD Morrow - 05/31/2025 10:30 AM CDT Does he want a note excusing him from jury duty? documented in this encounter Plan of Treatment Not on file documented as of this encounter Visit Diagnoses Not on filedocumented in this encounter Care Teams Accounting Coordinator Relationship Specialty Start Date End Date Monica Dominique APNP [address] [place] [id number] PCP - General NURSE PRACTITIONER 09/10/22 documented as of this encounter
--- OUTSIDE RECORDS SUMMARY | 2025-08-28 07:16 | XMS_ITS | Clinical Summary ---
Author Organization [facility] Address [address] [place] [address] Care Team Providers Care Skin Care Therapist Name Role Phone Monica Dominique Primary Care Provider [phone] Allergies Active Allergy Reactions Criticality Noted Date Comments Wheat Sneezing Low 04/26/2024 Medications carvedilol (COREG) 6.25 MG tablet Take 1 tablet (6.25 mg total) by mouth. 11/29/2023 Active JARDIANCE 10 MG tablet 1 tablet (10 mg total). 11/29/2023 Active furosemide (LASIX) 40 MG tablet 1 tablet (40 mg total). 11/29/2023 Active spironolactone (ALDACTONE) 25 MG tablet 1 tablet (25 mg total). 11/29/2023 Active ENTRESTO 24-26 MG tablet TAKE 1 TABLET BY MOUTH EVERY 12 HOURS FOR 30 DAYS 11/29/2023 Active ENTRESTO 49-51 MG tablet Take 1 tablet by mouth 2 (two) times daily. 06/26/2024 Active Active Problems Problem Noted Date Diagnosed Date CHF (congestive heart failure) 12/02/2023 LV (left ventricular) mural thrombus 12/02/2023 Encounters Date Type Department Care Team Description 05/30/2025 MyChart Message Enc [facility] Family & Internal Medicine [address] [phone] Monica Dominique APNP [place] Duty from Last 3 Months Immunizations Immunization Administration Dates Next Due Fluzone 6 Months+ Quad (0.5 mL Prefilled Syringe ) 09/10/2022 PFIZER COVID-19 BIVALENT (12 +) mRNA, LNP-S, PF, 30 MCG/0.3 ML DOSE 09/10/2022 Tdap (Adacel) 09/10/2022 Family History Medical History Relation Comments Cancer Brother Brain tumor Cancer Father Prostate cancer Heart Disease Maternal Grandfather No Known Problems Maternal Grandmother Heart Attack Paternal Grandfather Kidney Stones Son Relation Status Comments Brother Alive Father Maternal Grandfather Maternal Grandmother Mother Alive Paternal Grandfather Paternal Grandmother Sister Alive Son Alive Social History Tobacco Use Types Packs/Day Years Used Date Smoking Tobacco: Former Cigarettes 0.5 30 0 04/11/1994 - 04/11/2024 Smokeless Tobacco: Never Tobacco Cessation:Counseling Given: Yes Alcohol Use Standard Drinks/Week Comments Yes 0 (1 standard drink = 0.6 oz pur e alcohol) socially PHQ-2 Answer Date Recorded Patient Health Questionnaire-2 Score 0 07/19/2024 Sex and Gender Information Value Date Recorded Sex Assigned at Not on file Legal Sex Male 11:39 AM CDT Gender Identity Not on file Sexual Orientation Not on file Last Filed Vital Signs Vital Sign Reading Time Taken Comments Blood Pressure 116/62 07/19/2024 10:34 AM CDT Pulse 68 07/19/2024 10:34 AM CDT Temperature 36.7 C (98.1 F) 07/19/2024 10:34 AM CDT Respiratory Rate 16 07/19/2024 10:3 4 AM CDT Oxygen Saturation 97% 07/19/2024 10: 34 AM CDT Inhaled Oxygen Concentration - - Weight 103.6 kg (228 lb 4.8 oz) 024 10:34 AM CDT Height 172.7 cm (5' 8) 07/19/2024 10:3 4 AM CDT Body Mass Index 34.71 07/19/2024 10:34 AM CDT Plan of Treatment Health Maintenance Due Date Last Done Comments Annual Physical 1970 Hepatitis C 1985 Hepatitis B Vaccines (1 of 3 - 19+ 3-dose series) 1986 Pneumococcal Vaccine: 50+ Years (1 of 2 - PCV) 1986 Zoster Vaccines (1 of 2) 2017 PHQ-2 (Physician [place]) 11/02/2024 07/19/2024 COVID-19 Vaccine (3 - 2024-2 6 season) 2025 09/10/2022, 07/21/2021, 06/30/2021 Influenza Adult (#1) 2025 09/10/2022 DTaP, Tdap and Td Vaccines ( 2 - Td or Tdap) 09/10/2032 09/10/2022 Colorectal Cancer Screening Colonoscopy (10 Years) 05/11/2033 05/11/2023 Hepatitis A Vaccines Aged Out No long er eligible based on patient's age to complete this topic Meningococcal B Vaccine Aged Out No l onger eligible based on patient's age to complete this topic Meningococcal Vaccine Aged Out No fadi farzana eligible based on patient's age to complete this topic RSV Immunizations Under 20 Months Aged Out No longer eligible b ased on patient's age to complete this topic Procedures Procedure Name Priority Date/Time Associated Diagnosis Comments COLONOSCOPY GENERIC (SCAN ORDER) 05/11/2023 from Last 3 Months or Most Recently Relevant to Health Maintenance Results * COLONOSCOPY GENERIC (05/11/2023) 05/11/2023 [facility] Scanned SCANNING Final Resu lt from Last 3 Months or Most Recently Relevant to Health Maintenance Insurance [facility] Care Teams Skin Care Therapist Relationship Specialty Start Date End Date Monica Dominique APNP [address] [place] [phone] PCP - General NURSE PRACTITIONER 09/10/22
[2025-08-28 08:08] LABS: Alanine Aminotransferase 37 U/L (6-50); Albumin Level 4.1 g/dL (3.5-5.1); Alkaline Phosphatase 93 U/L (38-126); Anion Gap 8 mmol/L (4-12); Aspartate Amino Transferase 32 U/L (17-59); Bilirubin,Total 0.9 mg/dL (0.2-1.3); Blood Urea Nitrogen 12 mg/dL (9-20); Calcium 8.7 mg/dL (8.4-10.2); Carbon Dioxide 22 mmol/L (22-30); Chloride 107 mmol/L (98-107); Estimated Glomerular Filt Rate > 60; Glucose 107 mg/dL (65-110); Potassium 3.7 mmol/L (3.4-5.0); Sodium 137 mmol/L (137-145); Total Protein 7.0 g/dL (6.3-8.2)
[2025-08-28 08:12] LABS: NT Pro B Type Natriuretic Pept 57 pg/mL (19.9-100)
== END 2025-08-28 07:12 | disposition home or self-care (01) ==
LOC: ANHLAB 07:13
PROVIDERS: PCP Registered Nurse; Visit Provider Internal Medicine Cardiovascular Disease
DX: I42.8 Other cardiomyopathies (principal); R60.9 Edema, unspecified
CPT/HCPCS: 36415; 80053; 83880

== ENCOUNTER 2025-09-13 05:17 | Emergency (ER) | payer OTHER, SELFPAY ==
[2025-09-13] VITALS (9 sets, daily range): BP systolic 106–135; BP diastolic 83–97; PULSE 60–74; RESP 9–18; TEMP 36.5; O2SAT 93–98
--- NOTE | ~2025-09-13 | XR_ITS ---
Examination: XR chest 1V portable Clinical History: back/shoulder pain w/ chest pain Comparison: 11/25/2023 Technique: Portable AP Findings: Left ICD. Heart size normal. Lungs clear. No acute bony abnormality. IMPRESSION: 1. No acute cardiopulmonary findings given portable technique. Reviewed, dictated and finalized at location R. R PILOT
--- NOTE | ~2025-09-13 | CT_ITS ---
EXAM: CT abdomen pelvis with contrast INDICATION: Bloating. COMPARISONS: None. PROCEDURE: 100 mL of Isovue 300 was injected IV. Enteric contrast given. Dose reduction technique(s) used. FINDINGS: Lower chest: Lung bases are clear. Body wall: No abnormality demonstrated. ABDOMEN: Liver: Mildly fatty infiltrated Gallbladder: There is cholelithiasis. No bile duct dilatation. Spleen: Normal. Adrenals: Normal. Pancreas: No mass or adjacent stranding. Normal caliber duct. Kidneys: No mass or hydronephrosis. There are some very tiny stones, nonobstructive, in the left kidney. 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 No ureteral stones are seen. Aorta: Normal caliber. IVC: Normal. Retroperitoneum: No adenopathy. Stomach and visualized esophagus: No abnormality. PELVIS: Reproductive Organs: No pelvic mass. Bladder: No nodule or calculus. There is a urachal remnant which extends about detention from the bladder to the umbilicus. Colon: No focal wall thickening or paracolic fat stranding. Small Bowel: No dilatation or wall thickening. Appendix: Normal. Mesentery: No adenopathy. Normal splanchnic veins. Peritoneum: No free fluid or free air. Bones: No destructive lesion. IMPRESSION: 1. There is a very tiny left renal stones, nonobstructive. 2. 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 3. Cholelithiasis. 4. Urachal remnant as described. Reviewed, dictated and finalized at location A. WASHER
--- NOTE | 2025-09-13 05:40 | ECG_ITS ---
Test Date: 2025-09-13 05:43:10 Measurements Intervals [place] Rate: 60 P: 100 NM: 138 QRS: -87 QRSD: 136 T: 58 QT: 472 QTc: 475 Interpretive Statements ELECTRONIC ATRIAL PACEMAKER ELECTRONIC VENTRICULAR PACEMAKER ABNORMAL RHYTHM ECG No previous ECG available for comparison Electronically Signed On 09-13-2025 13:16:47 STAKING PRESS OPERATOR by Brayan Braxton M.D.
[2025-09-13 06:12] LABS: Hematocrit 46.5 % (42.0-52.0); Hemoglobin 16.0 g/dL (14.0-18.0); Immature Granulocyte Percent A 0.3 % (0-0.5); Lymphocytes Absolute Auto 1.46 K/mm3 (0.9-3.2); Mean Corpuscular HGB Conc 34.4 g/dl (32-36); Mean Corpuscular Hemoglobin 31.7 pg (26-34); Mean Corpuscular Volume 92.1 fl (80-100); Nucleated Red Blood Cells Absolute Auto 0.000 K/mm3 (0.0-0.012); Nucleated Red Blood Cells Perc 0.0 % (0.0-0.2); Platelet Count Result 208 k/mm3 (150-375); Red Blood Count 5.05 M/mm3 (4.6-6.20); White Blood Count 6.5 K/mm3 (4.5-10.0)
--- NOTE | 2025-09-13 06:13 | ED.BACK ---
HPI - Back Pain/Injury General Chief Complaint: Back Pain/Injury <Kayla Golden MD - Last Filed: 09/13/25 09:13> Stated Complaint: back pain and shoulder pain <Kayla Golden MD - Last Filed: 09/13/25 09:13> Time Seen by Provider: 09/13/25 05:56 <Kayla Golden MD - Last Filed: 09/13/25 09:13> Source: patient and family ( Kaelyn) <Kayla Golden MD - Last Filed: 09/13/25 09:13> Mode of arrival: ambulatory <Kayla Golden MD - Last Filed: 09/13/25 09:13> Limitations: no limitations <Kayla Golden MD - Last Filed: 09/13/25 09:13> History of Present Illness HPI Narrative: Patient presents with report of back pain that wraps around to his chest, the left side. This started yesterday. He describes of tightness. He is also having shortness of breath and shoulder pain. He had an echo performed 2 weeks ago and noted that his heart failure for which he has a defibrillator/pacemaker and previously 27% ejection fraction but 54% on most recent echo. He says he just noticed a rash on his abomen and a few spots on his back. He has had his shingles vaccine. 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 He feels bloated. For his heart failure he is on Jardiance, Entresto, furosemide, apleronon, and carvedilol he has a history of previous PE but anticoagulation has since been discontinued. Denies any edema. He has had a cough somewhat productive of phlegm. No fevers but he has had chills. No previous abdominal surgery. Not noticed his abdominal symptoms to have any relation to food. Denies any trauma or injury. Piping Engineer is Dr Oneal. <Kayla Golden MD - Last Filed: 09/13/25 09:13> Related Data Allergies/Adverse Reactions: Allergies Allergy/AdvReac Type Severity Reaction Status Date / Time No Known Allergies Allergy Verified 09/13/25 05:34 <Kayla Golden MD - Last Filed: 09/13/25 09:13> [facility] Past Medical History Medical History: Medical History Presence of combination internal cardiac defibrillator (ICD) and pacemaker Heart failure Colon cancer screening Arthritis Hypertension Seasonal allergies Trigger point of left shoulder region Tendinitis of left rotator cuff Multiple kidney stones <Kayla Golden MD - Last Filed: 09/13/25 09:13> Family History Family History: Family History Other Arthritis Diabetes mellitus Heart disease Hypertension Malignant neoplasm <Kayla Golden MD - Last Filed: 09/13/25 09:13> Social History Social History: Social History (Updated 09/13/25 @ 08:56 by Kayla Golden MD) Smoking packs per day: 0.5 Smoking cigarettes per day: 10.0 Years smoked: 30 Smoking pack-years: 15.00 Tobacco type: cigarettes Alcohol intake: current Drinks per week: 3 Alcohol use details: occasionally Substance use: never Substance use type: does not use Do You Feel Safe in your Home?: Yes Lack of Transportation: No Lack of Food: Never True Current Housing: I Have Housing Concerned About Future Housing: No Difficulty Paying Gas/Electric Bills: No Difficulty Paying for Meds: No Currently Unemployed: No Education: High School Diploma/GED Difficulty w/ Childcare or Family Care: No Living arrangements: with family Occupation/Education: occupation 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 HEAD: Normocephalic, atraumatic. EYES: Non injected, non icteric ENT: Nares clear, no rhinorrhea or epistaxis. Gross auditory acuity intact. NECK: Supple. No meningismus. CHEST: Speaking in full sentences. No respiratory distress. HEART: Regular rate and rhythm. . ABDOMEN: Not peritoneal EXTREMITIES: Normal range of motion. No lower extremity edema. SKIN: Warm, dry. Rash on the left (does not cross midline) at base of sternum and extending laterally at inframammary region (T5 dermatome) with some (though fewer) lesions posterior back same dermatomal region NEURO: No focal deficits. Alert and oriented. Answering questions. Following commands. Normal speech without aphasia or dysarthria. PSYCH: Normal mood and affect. <Kayla Golden MD - Last Filed: 09/13/25 09:13> Course Course Emergency Course: Patient signed out pending CT results. This is showing gallstones, no evidence of cholecystitis. Patient will be given information for General surgery follow-up. Continued treatment of shingles as planned <Maria Fernanda Batista PA-C - Last Filed: 09/13/25 09:30> Vital Signs Vital signs: Vital Signs Temperature 97.7 F 09/13/25 05:27 Pulse Rate 60 09/13/25 05:27 Respiratory Rate 18 09/13/25 05:27 Blood Pressure 106/83 09/13/25 05:27 Pulse Oximetry 96 09/13/25 05:27 Oxygen Delivery Room Air 09/13/25 05:27 Temperature 97.7 F 09/13/25 05:27 Pulse Rate 74 09/13/25 08:41 Respiratory Rate 15 09/13/25 08:41 Blood Pressure 132/97 H 09/13/25 08:41 Pulse Oximetry 98 09/13/25 08:41 Oxygen Delivery Room Air 09/13/25 05:27 <Kayla Golden MD - Last Filed: 09/13/25 09:13> Vital Signs Temperature 97.7 F 09/13/25 05:27 Pulse Rate 60 09/13/25 05:27 Respiratory Rate 18 09/13/25 05:27 Blood Pressure 106/83 09/13/25 05:27 Pulse Oximetry 96 09/13/25 05:27 Oxygen Delivery Room Air 09/13/25 05:27 Temperature 97.7 F 09/13/25 05:27 Pulse Rate 74 09/13/25 08:41 Respiratory Rate 15 09/13/25 08:41 Blood Pressure 132/97 H 09/13/25 08:41 Pulse Oximetry 98 09/13/25 08:41 Oxygen Delivery Room Air 09/13/25 05:27 <Maria Fernanda Batista PA-C - Last Filed: 09/13/25 09:30> MDM - Back Pain/Injury MDM Narrative Medical decision making narrative: Patient presents with report of back pain that wraps around to his chest started yesterday. In the emergency department they are afebrile with vital signs within normal limits. Patient has a rash in a dermatomal distribution consistent with shingles. Dimer within normal limits. Troponin BNP are within normal limits. Viral panel negative. Patient was given narcotic medication as well as 1st dose of acyclovir. He was also given simethicone for his bloating. He was about to be discharged when I was informed by the nurse that he is requesting a CT abd/pelvis due to his bloating. Complaining of shoulder pain to RN. Ketorolac ordered. This does raise concern for possible biliary etiology. Signed out to HOME SERVICE DEMONSTRATOR pending CT interpretation which has been pending for >40 minutes. <Kayla Golden MD - Last Filed: 09/13/25 09:13> Differential Diagnosis Differential diagnosis: Likely other (zoster; ACS; heart failure exacerbation ; acute viral syndrome; constipation; dyspepsia) <Kayla Golden MD - Last Filed: 09/13/25 09:13> Lab Data Attestation: I reviewed the patient's lab results. <Kayla Golden MD - Last Filed: 09/13/25 09:13> Lab results narrative: CBC with mild abnormalities on the differential but otherwise without anemia thrombocytopenia, leukocytosis <Kayla Golden MD - Last Filed: 09/13/25 09:13> Result diagrams: 09/13/25 06:01 09/13/25 06:01 <Kayla Golden MD - Last Filed: 09/13/25 09:13> Labs: Lab Results 09/13/25 09/13/25 Range/Units 06:01 06:31 WBC 6.5 (4.5-10.0) K/mm3 RBC 5.05 (4.6-6.20) M/mm3 Hgb 16.0 (14.0-18.0) g/dL Hct 46.5 (42.0-52.0) % MCV 92.1 (80-100) fl MCH 31.7 (26-34) pg MCHC 34.4 (32-36) g/dl RDW 12.1 (11.5-14.5) % Plt Count 208 (150-375) k/mm3 MPV 9.2 (7.4-10.4) fl Immature Gran % (Auto) 0.3 (0-0.5) % Neut % (Auto) 62.1 (45.5-73.1) % Lymph % (Auto) 22.5 (18.3-44.2) % Glascock % (Auto) 9.7 H (2.6-8.5) % Eos % (Auto) 4.5 H (0-4.4) % Baso % (Auto) 0.9 (0.2-1.2) % Lymph # (Auto) 1.46 (0.9-3.2) K/mm3 Glascock # (Auto) 0.6 (0.1-0.6) K/mm3 Eos # (Auto) 0.3 (0-0.3) K/mm3 Baso # (Auto) 0.1 (0.0-0.1) K/mm3 Abs Immat Gran (auto) 0.02 (0.00-0.031) K/mm3 Absolute Neuts (auto) 4.0 (1.3-6.7) K/mm3 Absolute Nucleated RBC 0.000 (0.0-0.012) K/mm3 Nucleated RBC % 0.0 (0.0-0.2) % D-Dimer < 0.27 (<0.48) ug/mL Sodium 138 (137-145) mmol/L Potassium 4.2 (3.4-5.0) mmol/L Chloride 108 H (98-107) mmol/L Carbon Dioxide 22 (22-30) mmol/L Anion Gap 8 (4-12) mmol/L BUN 14 (9-20) mg/dL Creatinine 0.81 (0.7-1.3) mg/dL Estim Creat Clear Calc 113 ml/min Estimated GFR > 60 (59 - ) Glucose 114 H (65-110) mg/dL Calcium 9.6 (8.4-10.2) mg/dL Total Bilirubin 0.7 (0.2-1.3) mg/dL AST 32 (17-59) U/L ALT 36 (6-50) U/L Alkaline Phosphatase 101 (38-126) U/L Troponin I < 0.012 (0.000-0.034) ng/mL NT-Pro-B Natriuret Pep < 20 (19.9-100) pg/mL Total Protein 7.1 (6.3-8.2) g/dL Albumin 4.2 (3.5-5.1) g/dL Lipase 69 (23-300) U/L Influenza A (RT-PCR) Negative (Negative) Influenza B (RT-PCR) Negative (Negative) RSV (RT-PCR) Negative (Negative) SARS-CoV-2 RNA (RT-PCR) Negative (Negative) <Kayla Golden MD - Last Filed: 09/13/25 09:13> Lab Results 09/13/25 09/13/25 Range/Units 06:01 06:31 WBC 6.5 (4.5-10.0) K/mm3 RBC 5.05 (4.6-6.20) M/mm3 Hgb 16.0 (14.0-18.0) g/dL Hct 46.5 (42.0-52.0) % MCV 92.1 (80-100) fl MCH 31.7 (26-34) pg MCHC 34.4 (32-36) g/dl RDW 12.1 (11.5-14.5) % Plt Count 208 (150-375) k/mm3 MPV 9.2 (7.4-10.4) fl Immature Gran % (Auto) 0.3 (0-0.5) % Neut % (Auto) 62.1 (45.5-73.1) % Lymph % (Auto) 22.5 (18.3-44.2) % [place]ock % (Auto) 9.7 H (2.6-8.5) % Eos % (Auto) 4.5 H (0-4.4) % Baso % (Auto) 0.9 (0.2-1.2) % Lymph # (Auto) 1.46 (0.9-3.2) K/mm3 [place]ock # (Auto) 0.6 (0.1-0.6) K/mm3 Eos # (Auto) 0.3 (0-0.3) K/mm3 Baso # (Auto) 0.1 (0.0-0.1) K/mm3 Abs Immat Gran (auto) 0.02 (0.00-0.031) K/mm3 Absolute Neuts (auto) 4.0 (1.3-6.7) K/mm3 Absolute Nucleated RBC 0.000 (0.0-0.012) K/mm3 Nucleated RBC % 0.0 (0.0-0.2) % D-Dimer < 0.27 (<0.48) ug/mL Sodium 138 (137-145) mmol/L Potassium 4.2 (3.4-5.0) mmol/L Chloride 108 H (98-107) mmol/L Carbon Dioxide 22 (22-30) mmol/L Anion Gap 8 (4-12) mmol/L BUN 14 (9-20) mg/dL Creatinine 0.81 (0.7-1.3) mg/dL Estim Creat Clear Calc 113 ml/min Estimated GFR > 60 (59 - ) Glucose 114 H (65-110) mg/dL Calcium 9.6 (8.4-10.2) mg/dL Total Bilirubin 0.7 (0.2-1.3) mg/dL AST 32 (17-59) U/L ALT 36 (6-50) U/L Alkaline Phosphatase 101 (38-126) U/L Troponin I < 0.012 (0.000-0.034) ng/mL NT-Pro-B Natriuret Pep < 20 (19.9-100) pg/mL Total Protein 7.1 (6.3-8.2) g/dL Albumin 4.2 (3.5-5.1) g/dL Lipase 69 (23-300) U/L Influenza A (RT-PCR) Negative (Negative) Influenza B (RT-PCR) Negative (Negative) RSV (RT-PCR) Negative (Negative) SARS-CoV-2 RNA (RT-PCR) Negative (Negative) <Maria Fernanda Batista PA-C - Last Filed: 09/13/25 09:30> ECG Data EKG #1: Attestation: I personally reviewed and interpreted this ECG as follows: <Kayla Golden MD - Last Filed: 09/13/25 09:13> ECG completion date: 09/13/25 <Kayla Golden MD - Last Filed: 09/13/25 09:13> ECG completion time: 05:43 <Kayla Golden MD - Last Filed: 09/13/25 09:13> Interpretation: Atrial ventricular pacemaker at a rate of 60 beats per minute. IA interval 138. QRS 136. QT/QTC 472/475. Poor R-wave progression across the precordial leads. No T-wave inversions. Left axis deviation (QRS is positive with dominant R wave in Lead I; QRS is negative with dominant S wave in leads II, III, and aVF) <Kayla Golden MD - Last Filed: 09/13/25 09:13> Discharge Plan Discharge Clinical Impression: Abdominal bloating Shingles outbreak Qualifiers: Herpes zoster complications: without complications Qualified Code(s): B02.9 - Zoster without complications Cholelithiasis Qualifiers: Cholelithiasis location: gallbladder Cholecystitis presence: without cholecystitis Biliary obstruction: without biliary obstruction Qualified Code(s): K80.20 - Calculus of gallbladder without cholecystitis without obstruction <Kayla Golden MD - Last Filed: 09/13/25 09:13> Patient Disposition: Still a Patient <Kayla Golden MD - Last Filed: 09/13/25 09:13> Condition: Stable <Kayla Golden MD - Last Filed: 09/13/25 09:13> Instructions: Antibiotic Form, Gallstones (ED), Shingles (ED), Narcotic Safety (ED) <Kayla Golden MD - Last Filed: 09/13/25 09:13> Additional Instructions: Healing of lesions may take 4 or more weeks. Pain control is important. You received your first dose of antiviral and the rest of the course has been prescribed. It is important you keep taking it as this reduces your risk of developing complications. The contagious period for shingles lasts as long as there is an active rash with oozing or open blisters, typically for?7 to 10 days. The diphenhydramine /Benadryl can help with the itching/pain. It can make you sleepy. Acetaminophen/Tylenol (maximum 4000 mg per day) is safe to take with NSAIDs (ibuprofen/Motrin) for pain relief. For breakthrough pain a short course of opiates has been prescribed. <Kayla Golden MD - Last Filed: 09/13/25 09:13> Patient Language: Uzbek <Kayla Golden MD - Last Filed: 09/13/25 09:13> Prescriptions: New acyclovir 800 mg tablet See Rx Instructions .ROUTE .COMPLEX 7 Days Qty: 34 0RF Rx Instructions: 800 mg orally 5 times /day ; received first dose in ED diphenhydramine HCl [Allergy (diphenhydramine)] 25 mg capsule 25 mg PO TID PRN (Reason: itching) Qty: 16 0RF ibuprofen 600 mg tablet 600 mg PO TID PRN (Reason: pain) Qty: 30 0RF acetaminophen 500 mg capsule 1,000 mg PO Q6H PRN (Reason: pain) Qty: 30 0RF oxycodone 5 mg tablet 5 mg PO Q6H PRN (Reason: pain) Qty: 20 0RF No Action furosemide 40 mg Tablet 40 mg PO DAILY 30 Days Qty: 30 0RF carvedilol [Coreg] 6.25 mg Tablet 6.25 mg PO Q12HR 30 Days Qty: 60 0RF spironolactone 25 mg Tablet 25 mg PO QAM 30 Days Qty: 30 0RF Jardiance 10 mg Tablet 10 mg PO DAILY 30 Days Qty: 30 0RF Entresto 24-26 mg Tablet 1 tab PO Q12HR 30 Days Qty: 60 0RF <Kayla Golden MD - Last Filed: 09/13/25 09:13> Follow-up/Referrals: Catina,KYLE Anderson [Primary Care Provider] Gordon Dawson MD [Physician, General Surgery] <Kayla Golden MD - Last Filed: 09/13/25 09:13>
[2025-09-13 06:23] LABS: Alanine Aminotransferase 36 U/L (6-50); Albumin Level 4.2 g/dL (3.5-5.1); Alkaline Phosphatase 101 U/L (38-126); Anion Gap 8 mmol/L (4-12); Aspartate Amino Transferase 32 U/L (17-59); Bilirubin,Total 0.7 mg/dL (0.2-1.3); Blood Urea Nitrogen 14 mg/dL (9-20); Calcium 9.6 mg/dL (8.4-10.2); Carbon Dioxide 22 mmol/L (22-30); Chloride 108 mmol/L (98-107); Estimated CRCL calculation 113 ml/min; Estimated Glomerular Filt Rate > 60; Glucose 114 mg/dL (65-110); Lipase 69 U/L (23-300); Potassium 4.2 mmol/L (3.4-5.0); Sodium 138 mmol/L (137-145); Total Protein 7.1 g/dL (6.3-8.2)
[2025-09-13] MEDS: MORPHINE SULFATE (*CRX) 4 MG/ML INJ IV PUSH (06:28)
[2025-09-13 06:34] LABS: NT Pro B Type Natriuretic Pept < 20 pg/mL (19.9-100); Troponin I < 0.012 ng/mL (0.000-0.034)
[2025-09-13] MEDS: ACYCLOVIR 400 MG TABLET 800 MG PO (06:54)
[2025-09-13] MEDS: SIMETHICONE 125 MG CHEW TAB PO (07:00)
[2025-09-13 07:13] LABS: Influenza A QL RT-PCR Negative (Negative); Influenza B QL RT-PCR Negative (Negative); RSV RNA, RT-PCR Negative (Negative); SARS-CoV-2 RNA PCR Negative (Negative)
[2025-09-13] MEDS: DICYCLOMINE HCL 10 MG CAPSULE 20 MG PO (08:40)
[2025-09-13] MEDS: KETOROLAC 15 MG/ML VIAL (*BKC) IV PUSH (08:57)
[2025-09-13] MEDS: ACETAMINOPHEN 325 MG TABLET 650 MG PO (09:35)
[2025-09-13] MEDS: HYDROcodone/acetaminophen (*CRX) 5-325 MG TABLET 1 TAB PO (09:35)
== END 2025-09-13 09:56 | disposition home or self-care (01) ==
PROVIDERS: Emergency Provider Student in an Organized Health Care Education/Training Program; PCP Registered Nurse
DX: B02.9 Zoster without complications (principal); R14.0 Abdominal distension (gaseous); K80.20 Calculus of gallbladder without cholecystitis without obstruction; Z95.0 Presence of cardiac pacemaker; I10 Essential (primary) hypertension; F17.210 Nicotine dependence, cigarettes, uncomplicated; Z20.822 Contact with and (suspected) exposure to COVID-19
CPT/HCPCS: 36415; 71045; 74177; 80053; 83690; 83880; 84484; 85025; 85380; 87637; 93005; 96374; 96375; 99284; A9270; J1200; J1885; J2270; Q9967